=== PATIENT | male | born 1960 ===

== ENCOUNTER 2016-11-22 10:55 | Inpatient (IN) | payer MEDICAID ==
[2016-11-22 11:25] VITALS: BMI 39.1
--- NOTE | 2016-11-22 13:19 | ED PDOC ---
HPI: General Adult Time Seen by Provider: 11/22/16 11:27 Chief Complaint (Nursing): Psychiatric Evaluation History Per: Patient Additional Complaint(s): Pt. states this morning he felt very depressed and had thoughts about hurting himself. States he wanted to take all his pills and "end it all." Reports a hx of depression. He takes Abilify and Xanax. Further reports he feels that he has to support his entire family and is still grieving about his mother who last year. Pt. states he did not attempt to take his pills. Denies HI, hallucinations, chest pain, SOB, palpitations. Past Medical History Reviewed: Historical Data, Nursing Documentation, Vital Signs Vital Signs: Last Vital Signs Temp 98.2 F 11/22/16 11:21 Pulse 56 L 11/22/16 19:12 Resp 16 11/22/16 11:21 BP 124/84 11/22/16 11:21 Pulse Ox 98 11/22/16 19:12 - Medical History PMH: Anxiety, Arthritis, Bipolar Disorder, Depression, Diabetes, Hypercholesterolemia, Schizophrenia Denies: Hepatitis, HIV, HTN, Chronic Kidney Disease, Seizures, Sexually Transmitted Disease - Family History Family History: States: No Known Family Hx - Home Medications Home Medications: Ambulatory Orders Medication Instructions Recorded ALPRAZolam [Xanax] 0.25 mg PO Q4H PRN 11/22/16 ARIPiprazole [Abilify] 10 mg PO HS 11/22/16 Ascorbic Acid [Vitamin C 500 mg 1 tab PO DAILY 11/22/16 Tab] Aspirin [Ecotrin] 81 mg PO DAILY 11/22/16 Ergocalciferol (Vitamin D2) 50,000 unit PO QWK 11/22/16 [Vitamin D2] Fenofibrate Nanocrystallized 160 mg PO DAILY 11/22/16 [Triglide] Glimepiride [amaRYL] 4 mg PO BID 11/22/16 Magnesium Chloride [Magnesium Dr] 1 tab PO DAILY 11/22/16 Pantoprazole Sodium [Protonix] 40 mg PO BID 11/22/16 SITagliptin [Januvia] 100 mg PO DAILY 11/22/16 Sertraline [Zoloft] 50 mg PO HS 11/22/16 Zinc Gluconate [Zinc] 1 tab PO DAILY 11/22/16 - Allergies Allergies/Adverse Reactions: Allergies Allergy/AdvReac Type Severity Reaction Status Date / Time No Known Allergies Allergy Verified 09/01/14 16:15 Review of Systems ROS Statement: Except As Marked, All Systems Reviewed And Found Negative Psych: Positive for: Depression, Suicidal ideation Physical Exam - Reviewed Nursing Documentation Reviewed: Yes Vital Signs Reviewed: Yes - Physical Exam Appears: Positive for: Well, Non-toxic, No Acute Distress Head Exam: Positive for: ATRAUMATIC, NORMAL INSPECTION, NORMOCEPHALIC Skin: Positive for: Normal Color, Warm. Negative for: Rash Eye Exam: Positive for: EOMI, Normal appearance, PERRL ENT: Positive for: Normal ENT Inspection Neck: Positive for: Normal, Painless ROM Cardiovascular/Chest: Positive for: Regular Rate, Rhythm Respiratory: Positive for: CNT, Normal Breath Sounds Gastrointestinal/Abdominal: Positive for: Normal Exam, Bowel Sounds, Soft. Negative for: Tenderness Back: Positive for: Normal Inspection Extremity: Positive for: Normal ROM Neurologic/Psych: Positive for: Alert, Oriented, Mood/Affect (calm, cooperative) . Negative for: Aphasia, Facial Droop - Laboratory Results Result Diagrams: 11/22/16 13:29 11/22/16 13:29 - ECG ECG: Positive for: Interpreted By Me ECG Rhythm: Positive for: Sinus Bradycardia. Negative for: ST/T Changes Rate: 56 O2 Sat by Pulse Oximetry: 98 - Progress ED Course And Treament: Labs ordered. Pt. placed on 1:1. Disposition - Clinical Impression Clinical Impression: Depression - Patient ED Disposition Is Patient to be Admitted: No - Disposition Disposition: Routine/Home Disposition Time: 16:53 Condition: STABLE
[2016-11-22 14:05] LABS: BASO % 0.3 % (0.0-2.0); EOS # 0.2 K/uL (0.0-0.7); EOS % 1.8 % (0.0-4.0); HEMATOCRIT 42.7 % (35.0-51.0); LYMPH # 2.3 K/uL (1.0-4.3); LYMPH % 24.5 % (20.0-40.0); MEAN CELL VOLUME 88.2 fl (80.0-94.0); MEAN CORPUSCULAR HEMOGLOBIN 29.2 pg (27.0-31.0); MEAN CORPUSCULAR HGB CONC 33.1 g/dL (33.0-37.0); MEAN PLATELET VOLUME 8.2 fl (7.2-11.7); MONO # 0.6 K/uL (0.0-0.8); MONO % 6.8 % (0.0-10.0); NEUT # 6.3 K/uL (1.8-7.0); NEUT % 66.6 % (50.0-75.0); RED CELL DISTRIBUTION WIDTH 14.3 % (11.5-14.5); WHITE BLOOD COUNT 9.4 K/uL (4.8-10.8)
[2016-11-22 14:11] LABS: RBC URINE 3 /hpf (0-3); URINE BILIRUBIN NEGATIVE (NEGATIVE); URINE BLOOD NEGATIVE (NEGATIVE); URINE COLOR AMBER (YELLOW); URINE GLUCOSE (UA) NEG (Normal); URINE KETONE NEGATIVE (NEGATIVE); URINE LEUKOCYTE ESTERASE NEG Leu/uL (Negative); URINE PROTEIN NEGATIVE (NEGATIVE); URINE UROBILINOGEN 0.2-1.0 mg/dL (0.2-1.0); WBC URINE 1 /hpf (0-5)
[2016-11-22 14:19] LABS: ALB/GLOB RATIO 1.6 (1.0-2.1); ALCOHOL SERUM < 10 mg/dl (0-10); ALKALINE PHOSPHATASE 58 U/L (38-126); ALT/SGPT 59 U/L (21-72); AST/SGOT 42 U/L (17-59); BILIRUBIN,TOTAL 0.5 mg/dl (0.2-1.3); BLOOD UREA NITROGEN 18 mg/dl (9-20); CALCIUM 9.4 mg/dL (8.4-10.2); CARBON DIOXIDE 26 mmol/L (22-30); CHLORIDE 109 mmol/L (98-107); GFR AFRICAN-AMERICAN > 60; GLUCOSE,RANDOM 57 mg/dL (75-110); POTASSIUM 3.9 MMOL/L (3.6-5.0); SODIUM 145 mmol/l (132-148)
--- NOTE | 2016-11-22 17:46 | RAD ---
HISTORY: clearance COMPARISON: 09/01/2014. FINDINGS: LUNGS: The lungs are well inflated and clear. PLEURA: No significant pleural effusion identified, no pneumothorax apparent. CARDIOVASCULAR: Normal. OSSEOUS STRUCTURES: No significant abnormalities. VISUALIZED UPPER ABDOMEN: Normal. OTHER FINDINGS: None. IMPRESSION: No active pulmonary upper disease.
[2016-11-22 20:14] VITALS: O2SAT 97
[2016-11-22] MEDS ORDERED: Magnesium Hydroxide Susp 30 ml UD PO PRN (21:14)
[2016-11-22] MEDS ORDERED: Alum-Mag Hydrox-Simethicone Susp (30 mL) PO PRN (21:14)
[2016-11-22] MEDS ORDERED: DiphenhydrAMINE 50 mg/ml Inj IM PRN (21:14)
--- NOTE | 2016-11-23 02:44 | PCM.BM ---
Treatment Plan Problems - Problems identified on initial assessmt Altered Sleep Date Initiated: 11/23/16 Time Initiated: :43 Assessment reference: NA Status: Active Hopelessness/Worthlessness Date Initiated: 11/23/16 Time Initiated: :43 Assessment reference: NA Status: Active
--- NOTE | 2016-11-23 02:46 | PCM.BM ---
<Teresita Jefferson - Last Filed: 11/23/16 02:45> Treatment Plan Problems - Problems identified on initial assessmt Altered Sleep Date Initiated: 11/23/16 Time Initiated: 02:43 Assessment reference: NA Status: Active Hopelessness/Worthlessness Date Initiated: 11/23/16 Time Initiated: 02:43 Assessment reference: NA Status: Active Treatment assets and liabiliti Patient Assests: adapts well, motivated, ADL independent, negotiates basic needs Patient Liabilities: relationship conflicts, medical problems - Milieu Protocol Maintain good personal hygiene: daily Remind patient to perform daily oral care , daily Assist patient to perform ADL's, every shift Encourage regular showers Maintain personal safety: every shift Educate patient to report safety concerns to staff, every shift Monitor environment for contraband/sharps Medication safety: Monitor for expected outcome, potential side effects: daily, Assess barriers to learning: daily, Assess readiness for medication education: every shift <Dipika Esteban - Last Filed: 11/26/16 15:37> Treatment assets and liabiliti Patient Assests: adapts well, cooperative, resourceful, self-reliant, ADL independent, good support system, negotiates basic needs, good past tx response Patient Liabilities: relationship conflicts, medical problems Family Contact Family involvement: Family/SO is involved Family contact: Patient agrees to contact, Family has been contacted by patient Family contact name: Dax(brother) ([phone]) Family contacted how many times per week?: 1 Family contact comment: [employer] will place call to patients brother to discuss precursors to hospitalization, collect further collateral and address family concerns. - Outside Agency Agency 1 Care involvment: Other Agency contact name: [facility]- Patient is currently under the care of Dr. Taylor but is requesting referral to [facility]. Agency contact number: [phone] - Goals for Treatment Patient goals for treatment: Patient continues to reports symptoms of depression and anxiety in context of current living situation and discord with brother in-law. Patient withdrawn on 3NP. Patient is currently under the care of Dr. Taylor but is requesting referral to [facility]. Patient will continue stabilization on 3NP through medication management and group/supportive therapy. Patient to be encouraged to attend 3-6 groups/weekly to develop appropriate coping skills, improve insight, promote self-esteem, compliance and safety. Patient to be provided with referral for appropriate level of aftercare. Discharge/Continuing Care - Education Needs Education Needs: Family Medication, Family Diagnosis/Disease Process, Family Coping Skills, Family Community resources, Family Aftercare Safety Plan, Patient Medication, Patient Diagnosis/Disease Process, Patient Coping Skills, Patient Community resources, Patient Aftercare Safety Plan - Discharge Discharge Criteria: Tolerates medication w/o severe side effects, Free of Suicidal thoughts, Normal sleep pattern, Ability to care for self Discharge to:: Home, With Family - Treatment Team Participation Patient/Family/SO Statement: 11/26/16 15:35 Patient reports significant improvement in symptoms of depression and anxiety since admission. Patient presents as brighter but remains withdrawn on 3NP. Patient anticipated for discharge on 11/27. Patient remains agreeable to [facility] referral and expresses being motivated for tx.
--- NOTE | 2016-11-23 08:41 | CARD ---
APPROVED REPORT EKG Measurement Heart [id number] <Conclusion> Sinus bradycardia Incomplete right bundle branch block Left anterior fascicular block Abnormal ECG
[2016-11-23 08:49] LABS: T4 10.3 ug/dl (5.5-11.0)
[2016-11-23 09:02] LABS: THYROID STIMULATING HORMONE 0.27 mIU/ML (0.46-4.68)
[2016-11-23] MEDS: Magnesium Chloride 64 mg ER Tab PO SCH (10:40)
[2016-11-23] MEDS: Pantoprazole 40 mg EC Tab PO SCH ×2 (10:41→18:37)
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
--- NOTE | 2016-11-23 12:48 | CP.PCM.CON ---
<Jennifer Marrero - Last Filed: 11/23/16 14:18> History of Present Illness - History of Present Illness History of Present Illness: 56 y/o M with PMH of HLD, DM2, low TSH, depression and bipolar disorder admitted to psych floor for suicidal ideation. pt reports auditory hallucinations. patient denies any chest pain, abdo pain or SOB. no fever, chills, n/v or urinary symptoms. PMH: HLD, DM2, low TSH, depression and bipolar disorder PSH: none Allg: none SH: denies alcohol and illicit drug use. occasional Cig smoking FH: MOM: DM and Head cancer, at age 84 DAD: DM and stomach cancer, at age 86 VS: reviewed and stable Review of Systems - Constitutional Constitutional: absent: As Per HPI - EENT Eyes: absent: Blurred Vision, Irritation, Other Visual Disturbances Ears: absent: Decreased Hearing, Ear Discharge, Dizziness Nose/Mouth/Throat: absent: Epistaxis, Sinus Pain, Sore Throat - Cardiovascular Cardiovascular: absent: Chest Pain, Edema, Orthopnea, Paroxysmal Nocturnal Dyspnea, Pedal Edema - Respiratory Respiratory: absent: Cough, Dyspnea, Hemoptysis, Wheezing - Gastrointestinal Gastrointestinal: absent: Abdominal Pain - Genitourinary Genitourinary: absent: Change in Urinary Stream - Musculoskeletal Musculoskeletal: absent: Joint Swelling - Integumentary Integumentary: absent: Photosensitivity, Rash - Neurological Neurological: absent: Disequilibrium, Memory Loss, Sensory Deficit, Syncope, Tingling - Psychiatric Psychiatric: Anxiety - Endocrine Endocrine: absent: Polydipsia, Polyphagia, Polyuria Past Patient History - Infectious Disease Hx of Infectious Diseases: None - Tetanus Immunizations Tetanus Immunization: Unknown - Past Medical History & Family History Past Medical History?: Yes - Past Social History Smoking Status: Current Some Days Smoker - CARDIAC Hx Hypercholesterolemia: Yes Hx Hypertension: No - PULMONARY Hx Respiratory Disorders: No Hx Tuberculosis: No - NEUROLOGICAL Hx Neurological Disorder: No Hx Seizures: No - HEENT Hx HEENT Problems: Yes Other/Comment: WEARS GLASSES FOR FARSIGHTEDNESS - RENAL Hx Chronic Kidney Disease: No - ENDOCRINE/METABOLIC Hx Endocrine Disorders: Yes ("pre diabetic") Hx Diabetes Mellitus Type 2: Yes Other/Comment: pt also stating he has thyroid problems unable to specify - HEMATOLOGICAL/ONCOLOGICAL Hx Blood Disorders: No Hx Human Immunodeficiency Virus (HIV): No - INTEGUMENTARY Hx Dermatological Problems: No - MUSCULOSKELETAL/RHEUMATOLOGICAL Hx Arthritis: Yes - GASTROINTESTINAL Hx Gastrointestinal Disorders: No - GENITOURINARY/GYNECOLOGICAL Hx Genitourinary Disorders: No Hx Sexually Transmitted Disorders: No - PSYCHIATRIC Hx Depression: Yes Hx Emotional Abuse: No Hx Physical Abuse: No Hx Schizophrenia: Yes Hx Sexual Abuse: No Hx Substance Use: No - SURGICAL HISTORY Hx Surgeries: No - ANESTHESIA Hx Anesthesia: No Meds Allergies/Adverse Reactions: Allergies Allergy/AdvReac Type Severity Reaction Status Date / Time No Known Allergies Allergy Verified 09/01/14 16:15 - Medications Medications: Current Medications Acetaminophen (Tylenol 325mg Tab) 650 mg PO Q4 PRN PRN Reason: T>101;pain 1-7;headache Al Hydrox/Mg Hydrox/Simethicone (Maalox Plus 30 Ml) 30 ml PO Q4 PRN PRN Reason: Dyspepsia Aripiprazole (Abilify) 10 mg PO HS [facility] Last Admin: 11/22/16 22:00 Dose: 10 mg Ascorbic Acid (Vitamin C 500 Mg Tab) 500 mg PO DAILY [facility] Last Admin: 11/23/16 10:42 Dose: 500 mg Aspirin (Ecotrin) 81 mg PO DAILY [facility] Last Admin: 11/23/16 10:42 Dose: 81 mg Diphenhydramine HCl (Benadryl) 50 mg IM Q6 PRN PRN Reason: Extrapyramidal S/S Unable PO Diphenhydramine HCl (Benadryl) 50 mg PO Q6 PRN PRN Reason: Extrapyramidal Symptoms Diphenhydramine HCl (Benadryl) 50 mg PO HS PRN PRN Reason: Sleep Haloperidol (Haldol) 5 mg PO Q4 PRN PRN Reason: Agitation Haloperidol Lactate (Haldol) 5 mg IM Q4 PRN PRN Reason: Agitation, Unable to Take PO Lorazepam (Ativan) 2 mg IM Q4 PRN PRN Reason: Anxiety/Agitation,Unable PO Lorazepam (Ativan) 2 mg PO Q4 PRN PRN Reason: Anxiety/Agitation Magnesium Chloride (Slow-Mag) 64 mg PO DAILY [facility] Last Admin: 11/23/16 10:40 Dose: 64 mg Magnesium Hydroxide (Milk Of Magnesia) 30 ml PO HS PRN PRN Reason: Constipation Pantoprazole Sodium (Protonix Ec Tab) 40 mg PO BID [facility] Last Admin: 11/23/16 10:41 Dose: 40 mg Sertraline HCl (Zoloft) 50 mg PO HS [facility] Last Admin: 11/22/16 22:04 Dose: 50 mg Sitagliptin Phosphate (Januvia) 100 mg PO DAILY [facility] Last Admin: 11/23/16 10:44 Dose: 100 mg Zinc Sulfate (Zinc Sulfate 220 Mg Cap) 220 mg PO DAILY [facility] Last Admin: 11/23/16 10:42 Dose: 220 mg Physical Exam - Constitutional Appears: No Acute Distress - Head Exam Head Exam: ATRAUMATIC - Eye Exam Eye Exam: EOMI, Normal appearance Pupil Exam: NORMAL ACCOMODATION - ENT Exam ENT Exam: Mucous Membranes Moist - Neck Exam Neck exam: Positive for: Normal Inspection - Respiratory Exam Respiratory Exam: Clear to Auscultation Bilateral, NORMAL BREATHING PATTERN - Cardiovascular Exam Cardiovascular Exam: REGULAR RHYTHM, +S1, +S2 - GI/Abdominal Exam GI & Abdominal Exam: Normal Bowel Sounds, Soft - Extremities Exam Extremities exam: Positive for: normal inspection. Negative for: calf tenderness, pedal edema - Back Exam Back exam: absent: CVA tenderness (L), CVA tenderness (R) - Neurological Exam Neurological exam: Alert, CN II-XII Intact, Oriented x3 - Psychiatric Exam Psychiatric exam: Flat Affect - Skin Skin Exam: Dry, Intact, Normal Color, Warm Results - Vital Signs Recent Vital Signs: Last Vital Signs Temp 98.5 F 11/23/16 09:00 Pulse 61 11/23/16 09:00 Resp 18 11/23/16 09:00 BP 123/70 11/23/16 09:00 Pulse Ox 97 11/22/16 20:12 - Labs Result Diagrams: 11/22/16 13:29 11/22/16 13:29 Labs: Laboratory Results - last 24 hr 11/22/16 11/22/16 11/22/16 13:29 13:29 13:29 WBC 9.4 RBC 4.84 Hgb 14.1 Hct 42.7 MCV 88.2 MCH 29.2 MCHC 33.1 RDW 14.3 Plt Count 272 MPV 8.2 Neut % (Auto) 66.6 Lymph % (Auto) 24.5 Worth % (Auto) 6.8 Eos % (Auto) 1.8 Baso % (Auto) 0.3 Neut # 6.3 Lymph # 2.3 Worth # 0.6 Eos # 0.2 Baso # 0.0 Sodium 145 Potassium 3.9 Chloride 109 H Carbon Dioxide 26 Anion Gap 14 BUN 18 Creatinine 0.8 Est GFR ( Amer) > 60 Est GFR (Non-Af Amer) > 60 POC Glucose (mg/dL) Random Glucose 57 L Calcium 9.4 Total Bilirubin 0.5 AST 42 ALT 59 Alkaline Phosphatase 58 Total Protein 7.0 Albumin 4.3 Globulin 2.7 Albumin/Globulin Ratio 1.6 Triglycerides Cholesterol LDL Cholesterol Direct HDL Cholesterol Thyroxine (T4) Total T3 TSH 3rd Generation Urine Color Urine Clarity Urine pH Ur Specific [place] Urine Protein Urine Glucose (UA) Urine Ketones Urine Blood Urine Nitrate Urine Bilirubin Urine Urobilinogen Ur Leukocyte Esterase Urine RBC (Auto) Urine Microscopic WBC Urine Opiates Screen Negative Urine Methadone Screen Negative Ur Barbiturates Screen Negative Ur Phencyclidine Scrn Negative Ur Amphetamines Screen Negative U Benzodiazepines Scrn Negative U Oth Cocaine Metabols Negative U Cannabinoids Screen Negative Alcohol, Quantitative < 10 11/22/16 11/22/16 11/23/16 13:29 15:08 07:45 WBC RBC Hgb Hct MCV MCH MCHC RDW Plt Count MPV Neut % (Auto) Lymph % (Auto) Worth % (Auto) Eos % (Auto) Baso % (Auto) Neut # Lymph # Worth # Eos # Baso # Sodium Potassium Chloride Carbon Dioxide Anion Gap BUN Creatinine Est GFR ( Amer) Est GFR (Non-Af Amer) POC Glucose (mg/dL) 122 H Random Glucose Calcium Total Bilirubin AST ALT Alkaline Phosphatase Total Protein Albumin Globulin Albumin/Globulin Ratio Triglycerides 162 H D Cholesterol 126 LDL Cholesterol Direct 73 HDL Cholesterol 29 L Thyroxine (T4) 10.3 Total T3 0.981 L TSH 3rd Generation 0.27 L Urine Color Rere Urine Clarity Slighty-cloudy Urine pH 6.0 Ur Specific [place] 1.030 Urine Protein Negative Urine Glucose (UA) Neg Urine Ketones Negative Urine Blood Negative Urine Nitrate Negative Urine Bilirubin Negative Urine Urobilinogen 0.2-1.0 Ur Leukocyte Esterase Neg Urine RBC (Auto) 3 Urine Microscopic WBC 1 Urine Opiates Screen Urine Methadone Screen Ur Barbiturates Screen Ur Phencyclidine Scrn Ur Amphetamines Screen U Benzodiazepines Scrn U Oth Cocaine Metabols U Cannabinoids Screen Alcohol, Quantitative Assessment & Plan - Assessment and Plan (Free Text) Assessment: A/P: 56 y/o M with PMH of HLD, DM2, low TSH, depression and bipolar disorder admitted to psych floor for suicidal ideation. Denies any medical issues. DM - continue Januvia 100mg PO daily - Accucheck - monitor BG - Diabetic diet HLD - TG 162H, Chol 126, LDL 73, HDL 29 - continue lifestyle modification and diet control - Encourage Exercise Low TSH - Asymptomatic - TSH: 0.27, T4: 10.3 Obesity - BMI 39.1 - lifestyle modification and diet control Depression - Continue management as per psych Bipolar disorder - Continue management as per psych STD screening - Patient requested - 1 sexual partner in last 1yr, no protection as per pt Case discussed with Dr. Serrano <Ricardo Serrano - Last Filed: 11/23/16 14:45> Meds - Medications Medications: Current Medications Acetaminophen (Tylenol 325mg Tab) 650 mg PO Q4 PRN PRN Reason: T>101;pain 1-7;headache Al Hydrox/Mg Hydrox/Simethicone (Maalox Plus 30 Ml) 30 ml PO Q4 PRN PRN Reason: Dyspepsia Aripiprazole (Abilify) 10 mg PO HS [facility] Last Admin: 11/22/16 22:00 Dose: 10 mg Ascorbic Acid (Vitamin C 500 Mg Tab) 500 mg PO DAILY [facility] Last Admin: 11/23/16 10:42 Dose: 500 mg Aspirin (Ecotrin) 81 mg PO DAILY [facility] Last Admin: 11/23/16 10:42 Dose: 81 mg Diphenhydramine HCl (Benadryl) 50 mg IM Q6 PRN PRN Reason: Extrapyramidal S/S Unable PO Diphenhydramine HCl (Benadryl) 50 mg PO Q6 PRN PRN Reason: Extrapyramidal Symptoms Diphenhydramine HCl (Benadryl) 50 mg PO HS PRN PRN Reason: Sleep Haloperidol (Haldol) 5 mg PO Q4 PRN PRN Reason: Agitation Haloperidol Lactate (Haldol) 5 mg IM Q4 PRN PRN Reason: Agitation, Unable to Take PO Lorazepam (Ativan) 2 mg IM Q4 PRN PRN Reason: Anxiety/Agitation,Unable PO Lorazepam (Ativan) 2 mg PO Q4 PRN PRN Reason: Anxiety/Agitation Magnesium Chloride (Slow-Mag) 64 mg PO DAILY [facility] Last Admin: 11/23/16 10:40 Dose: 64 mg Magnesium Hydroxide (Milk Of Magnesia) 30 ml PO HS PRN PRN Reason: Constipation Pantoprazole Sodium (Protonix Ec Tab) 40 mg PO BID [facility] Last Admin: 11/23/16 10:41 Dose: 40 mg Sertraline HCl (Zoloft) 50 mg PO HS [facility] Last Admin: 11/22/16 22:04 Dose: 50 mg Sitagliptin Phosphate (Januvia) 100 mg PO DAILY [facility] Last Admin: 11/23/16 10:44 Dose: 100 mg Zinc Sulfate (Zinc Sulfate 220 Mg Cap) 220 mg PO DAILY [facility] Last Admin: 11/23/16 10:42 Dose: 220 mg Results - Vital Signs Recent Vital Signs: Last Vital Signs Temp 98.5 F 11/23/16 09:00 Pulse 61 11/23/16 09:00 Resp 18 11/23/16 09:00 BP 123/70 11/23/16 09:00 Pulse Ox 97 11/22/16 20:12 - Labs Result Diagrams: 11/22/16 13:29 11/22/16 13:29 Labs: Laboratory Results - last 24 hr 11/22/16 11/23/16 11/23/16 15:08 07:45 07:45 POC Glucose (mg/dL) 122 H Hemoglobin A1c 6.4 Triglycerides 162 H D Cholesterol 126 LDL Cholesterol Direct 73 HDL Cholesterol 29 L Thyroxine (T4) 10.3 Total T3 0.981 L TSH 3rd Generation 0.27 L Assessment & Plan - Assessment and Plan (Free Text) Plan: I was present with the resident during the history and exam. I discussed the case with the resident and agree with the findings and plan as documented in the residents note.
[2016-11-23 17:55] LABS: RAPID PLASMA REAGIN REACTIVE (NONREACTIVE)
[2016-11-24] MEDS: Pantoprazole 40 mg EC Tab PO SCH ×2 (09:40→18:15)
[2016-11-24] MEDS: Magnesium Chloride 64 mg ER Tab PO SCH (09:40)
--- NOTE | 2016-11-24 10:46 | PCM.PYCHPN ---
Psychiatric Progress Note - Psychiatric Progress Note Patient seen today, length of contact: pt seen and evaluated Patient Chief Complaint: pt mumbles to himself and remains internally preoccupied and remains withdrwan and paranoid on unit. 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
[2016-11-25] MEDS: Magnesium Chloride 64 mg ER Tab PO SCH (08:30)
[2016-11-25] MEDS: Pantoprazole 40 mg EC Tab PO SCH ×2 (09:29→17:10)
[2016-11-25 16:50] VITALS: RESP 18
--- NOTE | 2016-11-25 19:03 | PCM.PYCHPN ---
Psychiatric Progress Note - Psychiatric Progress Note Patient seen today, length of contact: pt seen and evaluated Patient Chief Complaint: pt mumbles to himself and remains internally preoccupied and remains withdrwan and paranoid on unit. Medication Change: No Medical Record Reviewed: Yes Mental Status Examination - Cognitive Function Orientation: Person, Place, Situation Attention: Poor Concentration: Poor Association: WNL - Mood Mood: Depressed, Anxious - Affect Affect: Constricted - Formal Thought Process Formal Thought Process: Hallucinations, Paranoia - Homicidal Ideation Homicidal Ideation: No Goal/Treatment Plan - Goal/Treatment Plan Progress Toward Problem(s) and Goals/Treatment Plan: anel continue the current regimen of zoloft and abilify and titrate to stabilize the pt anel engage pt in therapy and groups.
[2016-11-26] MEDS: Magnesium Chloride 64 mg ER Tab PO SCH (09:22)
[2016-11-26] MEDS: Pantoprazole 40 mg EC Tab PO SCH ×2 (09:23→17:34)
--- NOTE | 2016-11-26 11:52 | PCM.PYCHPN ---
Psychiatric Progress Note - Psychiatric Progress Note Patient seen today, length of contact: in treatment team Patient Chief Complaint: i feel better Problems Identified/Issues Discussed: pt states he is feeling much better now that he took his medications for a few days. feels being in the hospital has helped him get away from his family stress. he is denying any thoughts to hurt himself of others. his thoughts are more clear and he states his mood is no longer depressed. he denies medication side effects. Medication Change: No Medical Record Reviewed: Yes Mental Status Examination - Cognitive Function Orientation: Person, Place, Situation Memory: Intact Attention: WNL Concentration: WNL Association: [facility] Fund of Knowledge: [facility] Decription of patient's judgement and insights: fair - Mood Mood: Neutral - Affect Affect: Broad - Speech Speech: Appropriate - Formal Thought Process Formal Thought Process: No Impairment Psychotic Thoughts and Behaviors: denies any a/v hallucinations - Suicidal Ideation Suicidal Ideation: No Plan: pt denies any si/hi - Homicidal Ideation Homicidal Ideation: No Goal/Treatment Plan - Goal/Treatment Plan Need for Continued Stay: Remain at risks for inpatient hospitalization, Severe functional impairment Progress Toward Problem(s) and Goals/Treatment Plan: schizoaffective disorder tolerating medications and symptoms improved pt could benefit from a php program to monitor symptoms and provide structure and support plan to discharge tomorrow. Estimated Date of D/C: 11/27/16
[2016-11-27] MEDS: Magnesium Chloride 64 mg ER Tab PO SCH (08:50)
[2016-11-27] MEDS: Pantoprazole 40 mg EC Tab PO SCH (08:50)
[2016-11-27 09:06] VITALS: BP 124/68; PULSE 85; TEMP 96.5
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
== END 2016-11-27 11:14 | disposition home or self-care (01) | DRG 430 ==
LOC: H.ER 10:55 → H.EROBSV 12:20 → OBSVTOIN 16:53 → H.ERHOLD 17:11 → H.PSYCH 20:23
PROVIDERS: ADMIT Psychiatry & Neurology Psychiatry; ATTEND Psychiatry & Neurology Psychiatry
PROC: GZHZZZZ Group Psychotherapy (ICD-10-PCS; principal; 2016-11-26)
PROC: GZ51ZZZ Individual Psychotherapy, Behavioral (ICD-10-PCS; 2016-11-26)
DX: F32.3 Major depressive disorder, single episode, severe with psychotic features (principal); E11.9 Type 2 diabetes mellitus without complications; R45.851 Suicidal ideations; E66.9 Obesity, unspecified; E78.00 Pure hypercholesterolemia, unspecified; E78.5 Hyperlipidemia, unspecified; F31.9 Bipolar disorder, unspecified; Z91.14 Patient's other noncompliance with medication regimen; Z68.39 Body mass index [BMI] 39.0-39.9, adult; Z79.82 Long term (current) use of aspirin; Z79.899 Other long term (current) drug therapy; F17.210 Nicotine dependence, cigarettes, uncomplicated; F41.9 Anxiety disorder, unspecified; M19.90 Unspecified osteoarthritis, unspecified site; R73.03 Prediabetes; Z79.84 Long term (current) use of oral hypoglycemic drugs

== ENCOUNTER 2017-10-11 18:36 | Emergency (ER) | payer MEDICAID ==
[2017-10-11 18:36] VITALS: BMI 39.1
[2017-10-11 19:10] VITALS: BP 124/50; PULSE 62; RESP 18; TEMP 98.1; O2SAT 98
--- NOTE | 2017-10-11 20:50 | ED PDOC ---
HPI: Skin/Bite Injury Time Seen by Provider: 10/11/17 19:14 Chief Complaint (Nursing): Abnormal Skin Integrity Chief Complaint (Provider): Abnormal Skin Integrity History Per: Patient History/Exam Limitations: no limitations Onset/Duration Of Symptoms: Days (x1 week) Additional Complaint(s): Dmitriy Acosta is a 57 y/o male who presents to the ED complaining of bilateral itching to the legs for the past x1 week. Patient states he thought it was bug bites but noticed one lesion on his right leg that wouldn't heal and seems to be getting bigger. Patient denies applying any cream and he also denies fever, chills, or pruritic discharge. PMD: Dr. Blanchard Past Medical History Reviewed: Historical Data, Nursing Documentation, Vital Signs Vital Signs: Last Vital Signs Temp 98.1 F 10/11/17 19:07 Pulse 62 10/11/17 19:07 Resp 18 10/11/17 19:07 BP 124/50 L 10/11/17 19:07 Pulse Ox 98 10/11/17 19:07 - Medical History PMH: Anxiety, Arthritis, Bipolar Disorder, Depression, Diabetes, Hypercholesterolemia, Schizophrenia Denies: Hepatitis, HIV, HTN, Chronic Kidney Disease, Seizures, Sexually Transmitted Disease - Family History Family History: States: Hypertension - Social History Current smoker - smoking cessation education provided: Yes Alcohol: None Drugs: Denies - Home Medications Home Medications: Ambulatory Orders Medication Instructions Recorded Fenofibrate Nanocrystallized 160 mg PO DAILY 11/22/16 [Triglide] Glimepiride [amaRYL] 4 mg PO BID 11/22/16 Magnesium Chloride [Magnesium Dr] 1 tab PO DAILY 11/22/16 ARIPiprazole [Abilify] 10 mg PO HS #30 tab 11/27/16 Ascorbic Acid [Vitamin C 500 mg 500 mg PO DAILY tab 11/27/16 Tab] Aspirin [Ecotrin] 81 mg PO DAILY tabec 11/27/16 Calcium/Chloride/Magnesium 64 mg PO DAILY ect 11/27/16 [Slow-Mag] Pantoprazole [Protonix EC Tab] 40 mg PO BID #60 ect 11/27/16 SITagliptin [Januvia] 100 mg PO DAILY #30 tab 11/27/16 Sertraline [Zoloft] 50 mg PO HS #30 tab 11/27/16 Zinc [Zinc Sulfate 220 mg Cap] 220 mg PO DAILY cap 11/27/16 Amoxicillin/Clavulanate [Augmentin 1 tab PO BID #14 tab 10/11/17 875 MG-125 MG] Mupirocin 2% Ointment [Bactroban 1 appl TP BID #1 tube 10/11/17 Ointment] - Allergies Allergies/Adverse Reactions: Allergies Allergy/AdvReac Type Severity Reaction Status Date / Time No Known Allergies Allergy Verified 09/01/14 16:15 Review of Systems ROS Statement: Except As Marked, All Systems Reviewed And Found Negative (as per HPI otherwise negative) Constitutional: Negative for: Fever, Chills Skin: Positive for: Lesions. Negative for: Other (discharge from lesions) Physical Exam - Reviewed Nursing Documentation Reviewed: Yes Vital Signs Reviewed: Yes - Physical Exam Appears: Positive for: Well, No Acute Distress Head Exam: Positive for: ATRAUMATIC, NORMOCEPHALIC Extremity: Positive for: Other (red papular lesions to anterior tibia bilaterally as well as few on his upper extremities consistent with insect bite ; 1 cm circular ulcerated nontender lesion with subtle surrounding erythema to right anterior tibia) - ECG O2 Sat by Pulse Oximetry: 98 (RA) Pulse Ox Interpretation: Normal Medical Decision Making Medical Decision Making: Time: 20:00 Impression: Infected insect bite Initial Plan: --Patient will be discharged with antibiotics --Instructed to have mandatory follow up with PMD as well as for wound care Time: 20:06 Upon provider reevaluation patient is feeling better, is medically stable, and requires no further treatment in the ED at this time. Patient will be discharged home with Rx for antibiotics. Counseling was provided and all questions were answered regarding diagnosis and need for follow up with PMD as well as flow specialist. There is agreement to discharge plan. Return if symptoms persist or worsen. Scribe Attestation: Documented by Sukh Poole, acting as a scribe for Aimee Abel MD. Provider Scribe Attestation: All medical record entries made by the Scribe were at my direction and personally dictated by me. I have reviewed the chart and agree that the record accurately reflects my personal performance of the history, physical exam, medical decision making, and the department course for this patient. I have also personally directed, reviewed, and agree with the discharge instructions and disposition. Disposition - Clinical Impression Clinical Impression: Insect bite of leg, infected - Patient ED Disposition Is Patient to be Admitted: No - Disposition Referrals: Pepito Gates MD [Medical Doctor] - (SEE DR GATES IN 2-3 DAYS FOR WOUND CHECK RETURN TO ER FOR WOUND CHECK IF YOU ARE NOT ABLE TO SEE YOUR DOCTOR) Disposition: Routine/Home Disposition Time: 20:06 Condition: STABLE Additional Instructions: DMITRIY ACOSTA, thank you for letting us take care of you today. Your provider was Aimee Abel MD and you were treated for POSS INFECTION ON RIGHT LEG. The emergency medical care you received today was directed at your acute symptoms. If you were prescribed any medication, please fill it and take as directed. It may take several days for your symptoms to resolve. Return to the Emergency Department if your symptoms worsen, do not improve, or if you have any other problems. Please contact your doctor or call one of the physicians/clinics you have been referred to that are listed on the Patient Visit Information form that is included in your discharge packet. Bring any paperwork you were given at discharge with you along with any medications you are taking to your follow up visit. Our treatment cannot replace ongoing medical care by a primary care provider outside of the emergency department. Thank you for allowing the [facility] team to be part of your care today. Prescriptions: Amoxicillin/Clavulanate [Augmentin 875 MG-125 MG] 1 tab PO BID #14 tab Mupirocin 2% Ointment [Bactroban Ointment] 1 appl TP BID #1 tube Instructions: Insect Bites and Stings, Wound Infection
== END 2017-10-11 20:38 | disposition home or self-care (01) ==
LOC: H.ER 18:36
DX: L08.9 Local infection of the skin and subcutaneous tissue, unspecified (principal); E11.9 Type 2 diabetes mellitus without complications; Z79.84 Long term (current) use of oral hypoglycemic drugs

== ENCOUNTER 2017-12-01 19:51 | Emergency (ER) | payer MEDICAID ==
[2017-12-01 19:52] VITALS: BMI 39.1
[2017-12-01 20:02] VITALS: BP 121/68; PULSE 67; RESP 21; TEMP 98.7; O2SAT 97
--- NOTE | 2017-12-01 20:37 | ED PDOC ---
History of Present Illness History of Present Illness: 57 year old male presents to the ED with complaints of diffuse myalgias, sore throat, cough, and congestion for 2 days. Otherwise he denies any fever, chills, vomiting, diarrhea, SOB, chest pain, dizziness, or other associated symptoms. Patient did not take any medication for symptom relief prior to arrival. PMD: Pepito Bhandari HPI: Influenza Time Seen by Provider: 12/01/17 20:17 Chief Complaint: Flu-like Symptoms Chief Complaint (Provider): Flu-like Symptoms History Per: Patient Exam Limitations: no limitations Onset/Duration Of Symptoms: Days (x2) Symptoms include: bodyaches, sore throat, cough, nasal congestion Past Medical History Reviewed: Historical Data, Nursing Documentation, Vital Signs Vital Signs: Last Vital Signs Temp 98.7 F 12/01/17 19:57 Pulse 67 12/01/17 19:57 Resp 21 12/01/17 19:57 BP 121/68 12/01/17 19:57 Pulse Ox 97 12/01/17 19:57 - Medical History PMH: Anxiety, Arthritis, Bipolar Disorder, Depression, Diabetes, Hypercholesterolemia, Schizophrenia Denies: Hepatitis, HIV, HTN, Chronic Kidney Disease, Seizures, Sexually Transmitted Disease - Family History Family History: States: Hypertension - Home Medications Home Medications: Ambulatory Orders Medication Instructions Recorded Fenofibrate Nanocrystallized 160 mg PO DAILY 11/22/16 [Triglide] Glimepiride [amaRYL] 4 mg PO BID 11/22/16 Magnesium Chloride [Magnesium Dr] 1 tab PO DAILY 11/22/16 ARIPiprazole [Abilify] 10 mg PO HS #30 tab 11/27/16 Ascorbic Acid [Vitamin C 500 mg 500 mg PO DAILY tab 11/27/16 Tab] Aspirin [Ecotrin] 81 mg PO DAILY tabec 11/27/16 Calcium/Chloride/Magnesium 64 mg PO DAILY ect 11/27/16 [Slow-Mag] Pantoprazole [Protonix EC Tab] 40 mg PO BID #60 ect 11/27/16 SITagliptin [Januvia] 100 mg PO DAILY #30 tab 11/27/16 Sertraline [Zoloft] 50 mg PO HS #30 tab 11/27/16 Zinc [Zinc Sulfate 220 mg Cap] 220 mg PO DAILY cap 11/27/16 Amoxicillin/Clavulanate [Augmentin 1 tab PO BID #14 tab 10/11/17 875 MG-125 MG] Mupirocin 2% Ointment [Bactroban 1 appl TP BID #1 tube 10/11/17 Ointment] Azithromycin [Zithromax] 250 mg PO DAILY #6 tab 12/01/17 Naproxen [Naprosyn] 500 mg PO Q12H #20 tab 12/01/17 - Allergies Allergies/Adverse Reactions: Allergies Allergy/AdvReac Type Severity Reaction Status Date / Time No Known Allergies Allergy Verified 12/01/17 20:01 Review of Systems ROS Statement: Except As Marked, All Systems Reviewed And Found Negative Constitutional: Positive for: Other (generalized bodyaches). Negative for: Fever, Chills, Sweats Eyes: Negative for: Vision Change ENT: Positive for: Nose Congestion, Throat Pain Cardiovascular: Negative for: Chest Pain Respiratory: Positive for: Cough. Negative for: Shortness of Breath Gastrointestinal: Negative for: Nausea, Vomiting, Abdominal Pain, Diarrhea Neurological: Negative for: Weakness, Headache, Dizziness Physical Exam - Reviewed Nursing Documentation Reviewed: Yes Vital Signs Reviewed: Yes - Physical Exam Appears: Positive for: Non-toxic, No Acute Distress Head Exam: Positive for: ATRAUMATIC, NORMOCEPHALIC Skin: Positive for: Normal Color, Warm, Dry Eye Exam: Positive for: Normal appearance ENT: Positive for: Pharyngeal Erythema. Negative for: Tonsillar Exudate Neck: Positive for: Normal, Painless ROM Cardiovascular/Chest: Positive for: Regular Rate, Rhythm. Negative for: Murmur Respiratory: Positive for: Rhonchi (scattered). Negative for: Wheezing, Respiratory Distress Pulses-Radial (L): 2+ Pulses-Radial (R): 2+ Gastrointestinal/Abdominal: Positive for: Normal Exam, Soft. Negative for: Tenderness Extremity: Negative for: Calf Tenderness, Swelling Neurologic/Psych: Positive for: Alert, Oriented (x3) Medical Decision Making Medical Decision Making: Time: 20:31 Initial Impression: 57 y/o male with cough, congestion, sore throat, and bodyaches Initial Plan: Chest x-ray ordered to rule out pneumonia. --- Scribe Attestation: Documented by Wendy Brooks, acting as a scribe for Dr. Amandeep Lozada MD. Provider Scribe Attestation: All medical record entries made by the Scribe were at my direction and personally dictated by me. I have reviewed the chart and agree that the record accurately reflects my personal performance of the history, physical exam, medical decision making, and the department course for this patient. I have also personally directed, reviewed, and agree with the discharge instructions and disposition. - ECG O2 Sat by Pulse Oximetry: 97 Pulse Ox Interpretation: Normal Disposition - Clinical Impression Clinical Impression: Bronchitis, Upper respiratory infection - Patient ED Disposition Is Patient to be Admitted: No Counseled Patient/Family Regarding: Studies Performed, Diagnosis, Need For Followup, Rx Given - Disposition [facility]errals: [facility] [Outside] Disposition: Routine/Home Disposition Time: 21:54 Condition: FAIR Prescriptions: Azithromycin [Zithromax] 250 mg PO DAILY #6 tab Naproxen [Naprosyn] 500 mg PO Q12H #20 tab Instructions: Acute Bronchitis, Bacterial Upper Respiratory Infection, Adult Forms: [employer] (Bulgarian)
--- NOTE | 2017-12-02 09:46 | RAD ---
Date of service: 12/01/2017 HISTORY: cough COMPARISON: Frontal chest radiograph 11/22/2016. TECHNIQUE: Chest PA and lateral FINDINGS: LUNGS: No active pulmonary disease. PLEURA: No significant pleural effusion identified. No pneumothorax apparent. CARDIOVASCULAR: Normal. OSSEOUS STRUCTURES: No significant abnormalities. VISUALIZED UPPER ABDOMEN: Normal. OTHER FINDINGS: None. IMPRESSION: No interval acute cardiopulmonary disease appreciated.
== END 2017-12-01 22:12 | disposition home or self-care (01) ==
LOC: H.ER 19:51
DX: J40 Bronchitis, not specified as acute or chronic (principal); J06.9 Acute upper respiratory infection, unspecified

== ENCOUNTER 2018-02-04 13:00 | Inpatient (IN) | payer MEDICAID ==
[2018-02-04 13:01] VITALS: BMI 39.1
--- NOTE | 2018-02-04 13:43 | ED PDOC ---
HPI: Psych/Substance Abuse Time Seen by Provider: 02/04/18 13:09 Chief Complaint (Nursing): Psychiatric Evaluation Chief Complaint (Provider): Psychiatric Evaluation History Per: Patient History/Exam Limitations: no limitations Onset/Duration Of Symptoms: Days (x1 week) Additional Complaint(s): Destin Acosta is a 57 year old male with a past medical history of depression, diabetes, arthritis, hypercholesterolemia, anxiety, and bipolar disorder, who presents to the emergency department stating that he has been feeling more and more depressed. Patient reports that he does not feel like living anymore. H states he went to the police station because he felt suicidal but did not have any direct plan. He has been admitted in the past for depression and currently takes Abilify and Lexapro daily but has not taken them today. PMD: Pepito Blanchard Past Medical History Reviewed: Historical Data, Nursing Documentation, Vital Signs Vital Signs: Last Vital Signs Temp 98.4 F 02/04/18 13:02 Pulse 59 L 02/04/18 13:02 Resp 20 02/04/18 13:02 BP 148/84 02/04/18 13:02 Pulse Ox 97 02/04/18 13:02 - Medical History PMH: Anxiety, Arthritis, Bipolar Disorder, Depression, Diabetes, Hypercholesterolemia, Schizophrenia Denies: Hepatitis, HIV, HTN, Chronic Kidney Disease, Seizures, Sexually Transmitted Disease - Surgical History Surgical History: No Surg Hx - Family History Family History: States: Hypertension - Home Medications Home Medications: Ambulatory Orders Medication Instructions Recorded RX: Fenofibrate Nanocrystallized 160 mg PO DAILY 11/22/16 [Triglide] RX: Glimepiride [amaRYL] 4 mg PO BID 11/22/16 RX: Aspirin [Ecotrin] 81 mg PO DAILY tabec 11/27/16 RX: Pantoprazole [Protonix EC Tab] 40 mg PO BID #60 ect 11/27/16 RX: SITagliptin [Januvia] 100 mg PO DAILY #30 tab 11/27/16 RX: Sertraline [Zoloft] 50 mg PO HS #30 tab 11/27/16 Mupirocin 2% Ointment [Bactroban 1 appl TP BID #1 tube 10/11/17 Ointment] RX: ALPRAZolam [Xanax] 0.25 mg PO TID PRN 02/04/18 RX: ARIPiprazole [Abilify] 15 mg PO HS 02/04/18 RX: Ramipril [Altace] 2.5 mg PO DAILY 02/04/18 - Allergies Allergies/Adverse Reactions: Allergies Allergy/AdvReac Type Severity Reaction Status Date / Time No Known Allergies Allergy Verified 02/04/18 13:06 Review of Systems ROS Statement: Except As Marked, All Systems Reviewed And Found Negative Psych: Positive for: Depression, Suicidal ideation Physical Exam - Reviewed Nursing Documentation Reviewed: Yes Vital Signs Reviewed: Yes - Physical Exam Appears: Positive for: Non-toxic, No Acute Distress Head Exam: Positive for: ATRAUMATIC, NORMOCEPHALIC Skin: Positive for: Normal Color Cardiovascular/Chest: Positive for: Bradycardia Respiratory: Positive for: Normal Breath Sounds. Negative for: Respiratory Distress Neurologic/Psych: Positive for: Alert, Oriented - Laboratory Results Result Diagrams: 02/04/18 14:19 02/04/18 14:19 - ECG ECG Rhythm: Positive for: Sinus Bradycardia Interpretation Of ECG: No acute ischemic changes QTc 405 ms O2 Sat by Pulse Oximetry: 97 (RA) Pulse Ox Interpretation: Normal Medical Decision Making Medical Decision Making: Time: 13:46 Plan: --EKG --Alcohol Serum --CMP --Urine drug screen --CBC with differential --Urinalysis Pt. was evaluated by crisis counselor, d/w Dr. Tucker, arrangements made for admission. Pt. comfortable with plan. -------- --------- Scribe Attestation: Documented by Tushar Nur, acting as a scribe for Nighat Mcghee PA-C. Provider Scribe Attestation: All medical record entries made by the Scribe were at my direction and personall y dictated by me. I have reviewed the chart and agree that the record accurately reflects my personal performance of the history, physical exam, medical decision making, and the department course for this patient. I have also personally directed, reviewed, and agree with the discharge instructions and disposition. Disposition - Clinical Impression Clinical Impression: Psychiatric disorder - Patient ED Disposition Is Patient to be Admitted: Yes Doctor Will See Patient In The: Hospital - Disposition Disposition Time: 19:52 Condition: STABLE
[2018-02-04 14:28] LABS: BASO % 0.2 % (0.0-2.0); EOS # 0.2 K/uL (0.0-0.7); EOS % 2.7 % (0.0-4.0); HEMOGLOBIN 13.7 g/dL (12.0-18.0); LYMPH # 2.1 K/uL (1.0-4.3); LYMPH % 31.7 % (20.0-40.0); MEAN CELL VOLUME 88.6 fl (80.0-94.0); MEAN CORPUSCULAR HEMOGLOBIN 29.9 pg (27.0-31.0); MEAN CORPUSCULAR HGB CONC 33.7 g/dL (33.0-37.0); MEAN PLATELET VOLUME 7.7 fl (7.2-11.7); MONO # 0.5 K/uL (0.0-0.8); MONO % 7.8 % (0.0-10.0); NEUT # 3.7 K/uL (1.8-7.0); NEUT % 57.6 % (50.0-75.0); NRBC % 0.2 % (0.0-0.0); RBC 4.57 Mil/uL (4.40-5.90); RED CELL DISTRIBUTION WIDTH 14.1 % (11.5-14.5); WHITE BLOOD COUNT 6.5 K/uL (4.8-10.8)
[2018-02-04 14:36] LABS: URINE COLOR STRAW (YELLOW)
[2018-02-04 14:37] LABS: URINE BILIRUBIN NEGATIVE (NEGATIVE); URINE CLARITY CLEAR (Clear); URINE GLUCOSE (UA) NEGATIVE (Normal)
[2018-02-04 14:38] LABS: URINE BLOOD NEGATIVE (NEGATIVE); URINE LEUKOCYTE ESTERASE NEGATIVE Leu/uL (Negative); URINE PROTEIN NEGATIVE (NEGATIVE); URINE UROBILINOGEN 0.2-1.0 mg/dL (0.2-1.0)
[2018-02-04 14:53] LABS: ALB/GLOB RATIO 1.4 (1.0-2.1); ALT/SGPT 39 U/L (21-72); AST/SGOT 29 U/L (17-59); BARBITURATES, UR NEGATIVE (NEGATIVE); BENZODIAZEPINES, UR NEGATIVE (NEGATIVE); BLOOD UREA NITROGEN 13 mg/dl (9-20); GFR NON-AFRICAN AMERICAN > 60; OPIATES, UR NEGATIVE (NEGATIVE); PHENCYCLIDINE, UR NEGATIVE (NEGATIVE)
[2018-02-04 20:51] VITALS: O2SAT 97
[2018-02-04] MEDS ORDERED: Alum-Mag Hydrox-Simethicone Susp (30 mL) PO PRN (22:10)
[2018-02-04] MEDS ORDERED: DiphenhydrAMINE 50 mg/ml Inj IM PRN (22:10)
[2018-02-04] MEDS ORDERED: Magnesium Hydroxide Susp 30 ml UD PO PRN (22:10)
--- NOTE | 2018-02-04 22:28 | PCM.BM ---
<Ketan Poe - Last Filed: 02/04/18 22:25> Treatment Plan Problems - Problems identified on initial assessmt Hopelessness/Helplessness Date Initiated: 02/04/18 Time Initiated: 22:25 Assessment reference: NA Status: Active Priority: 1 Feelings of Worthlessness Date Initiated: 02/04/18 Time Initiated: 22:26 Assessment reference: NA Status: Active Priority: 2 Altered Sleep Patterns Date Initiated: 02/04/18 Time Initiated: 22:26 Assessment reference: NA Status: Active Priority: 3 Treatment assets and liabiliti Patient Assests: adapts well, cooperative, resourceful, self-reliant, ADL independent, good support system, negotiates basic needs, good past tx response Patient Liabilities: financial problems, poor support system - Milieu Protocol Maintain good personal hygiene: daily Encourage regular showers, daily Remind patient to perform daily oral care, daily Assist patient to perform ADL's Conduct patient checks and document Observation sheet: Q15 minutes Maintain personal safety: every shift Educate patient to report safety concerns to staff, every shift Monitor environment for contraband/sharps Medication safety: Monitor for expected outcome, potential side effects: every shift, Assess barriers to learning: every shift, Assess readiness for medication education: every shift <Kelsey Tucker - Last Filed: 02/05/18 08:49> - Diagnosis (1) Schizoaffective disorder Status: Acute Interventions: Medication management, Individual and group therapy, Psychoeducation 02/05/18 08:49 <Cortes Nieves - Last Filed: 02/05/18 12:59> Family Contact Family involvement: Family/SO is involved Family contact: Patient declines to allow family contact at present Family contact name: Pt refused. - Goals for Treatment Patient goals for treatment: Pt unable to identify goals at this time as he is floridly psychotic with internal preoccupation, thought blocking and paranoia. Discharge/Continuing Care - Education Needs Education Needs: Patient Medication, Patient Diagnosis/Disease Process, Patient Coping Skills, Patient Community resources, Patient Activities of Daily Living, Patient Aftercare Safety Plan - Discharge Discharge Criteria: Tolerates medication w/o severe side effects, Free of Suicidal thoughts, Free of paranoid thoughts, Free of agitation, Ability to care for self, Reduction of target symptoms Discharge to:: Home, With Family - Treatment Team Participation Patient/Family/SO Statement: 12/05/18 12:56 Pt seen in treatment team on 02/05/18. Pt presented as bizarre and unkempt with internal preoccupation, thought blocking and paranoia. Pt burst into tears without provocation or precipitating event and was unable to explain this emotional outburst to staff. Pt unable to give any current stressors and was unable to provide if his paranoia was real or a delusion. Discussed with Family/SO: No Was Patient/Family/SO present at Treatment Team Meeting: Yes
[2018-02-05 06:45] LABS: T4 7.72 ug/dl (5.5-11.0)
--- NOTE | 2018-02-05 06:57 | CARD ---
APPROVED REPORT Date of service: 02/04/2018 EKG Measurement Heart [id number] <Conclusion> Sinus bradycardia Left anterior fascicular block Abnormal ECG
--- NOTE | 2018-02-05 08:51 | PCM.PSYCH ---
Initial Psychiatric Evaluation - Initial Psychiatric Evaluation Type of Admission: Voluntary Legal Status: Capacity Chief Complaint (in patient's own words): "I wanted to kill myself." Patient's Reaction to Hospitalization: HPI: 57 yo male w/ h/o schizoaffective disorder, presents w/ suicidal ideation, acute paranoia that he is being followed by some unknown men, auditory hallucinations (patient can not specify what they are saying). Patient reports that 3 weeks ago he wanted to overdose on pills, but he did not do it. He reports feeling depressed, w/ poor energy/concentration. PPH: H/o Schizoaffective disorder vs Bipolar disorder; currently in outpatient treatment on Abilify 10 mg PO Daily, Zoloft 50 mg PO Daily; h/o prior hospitalizations PMH: HLD, DMII, HTN, GERD, h/o treatment for syphilis ALL: [facility]DA SH: Denies drugs/ etoh use; 3 cigs/ day; declined smoked cessation; lives w/ brother FH: MOM: DM and Head cancer, at age 84 DAD: DM and stomach cancer, at age 86 Current Medications: Active Medications Generic Name Dose Route Start Last Admin Trade Name Freq PRN Reason Stop Dose Admin Acetaminophen 650 mg 02/04/18 22:10 Tylenol 325mg Tab PO Q4 PRN Pain, moderate (4-7) Al Hydrox/Mg Hydrox/Simethicone 30 ml 02/04/18 22:10 Maalox Plus 30 Ml PO Q4 PRN Dyspepsia Aspirin 81 mg 02/05/18 09:00 Ecotrin PO DAILY ARMIN Diphenhydramine HCl 50 mg 02/04/18 22:10 Benadryl IM Q6 PRN Extrapyramidal S/S Unable PO Diphenhydramine HCl 50 mg 02/04/18 22:10 Benadryl PO Q6 PRN Extrapyramidal Symptoms Diphenhydramine HCl 50 mg 02/04/18 22:10 Benadryl PO HS PRN Sleep Fenofibrate 145 mg 02/05/18 09:00 Tricor PO DAILY ARMIN Glipizide 10 mg 02/05/18 08:00 Glucotrol Xl PO BIDWM ARMIN Haloperidol 5 mg 02/04/18 22:10 Haldol PO Q4 PRN Agitation Haloperidol Lactate 5 mg 02/04/18 22:10 Haldol IM Q4 PRN Agitation, Unable to Take PO Lorazepam 1 mg 02/04/18 22:10 Ativan PO Q8 PRN Anxiety Magnesium Hydroxide 30 ml 02/04/18 22:10 Milk Of Magnesia PO HS PRN Constipation Pantoprazole Sodium 40 mg 02/05/18 09:00 Protonix Ec Tab PO BID ARMIN Ramipril 2.5 mg 02/05/18 09:00 Altace PO DAILY ARMIN Sitagliptin Phosphate 100 mg 02/05/18 09:00 Januvia PO DAILY ARMIN Past Psychiatric History - Past Psychiatric History Previous Treatment History: Inpatient Pertinent Medical Hx (Current Medical&Sleep Prob, Allergies): Allergies Allergy/AdvReac Type Severity Reaction Status Date / Time No Known Allergies Allergy Verified 02/04/18 13:06 Fenofibrate Nanocrystallized [Triglide] 160 mg PO DAILY 11/22/16 Glimepiride [amaRYL] 4 mg PO BID 11/22/16 Aspirin [Ecotrin] 81 mg PO DAILY tabec 11/27/16 Pantoprazole [Protonix EC Tab] 40 mg PO BID #60 ect 11/27/16 SITagliptin [Januvia] 100 mg PO DAILY #30 tab 11/27/16 Sertraline [Zoloft] 50 mg PO HS #30 tab 11/27/16 Mupirocin 2% Ointment [Bactroban Ointment] 1 appl TP BID #1 tube 10/11/17 ALPRAZolam [Xanax] 0.25 mg PO TID PRN 02/04/18 ARIPiprazole [Abilify] 15 mg PO HS 02/04/18 Ramipril [Altace] 2.5 mg PO DAILY 02/04/18 Mental Status Examination - Personal Presentation Personal Presentation: Looks older than stated age - Affect Affect: Other (Labile) - Motor Activity Motor Activity: Calm - Reliability in Providing Information Reliability in Providing Information: Poor, due to alteration in thoughts - Speech Speech: Coherent, Other (Poverty of speech) - Formal Thought Process Formal Thought Process: Hallucinations, Paranoia - Hallucinations/Delusions Hallucinations: Auditory - Obsessions/Compulsions Obsessions: No Compulsions: No - Cognitive Functions Orientation: Person, Place, Situation, Time Sensorium: Alert Estimate of Intelligence: Average Judgement: Imparied, as evidence by: Lack of insight into illness Memory: Recent intact, as evidence by: Ability to recall events of the day - Risk Risk: Suicidal, Diminished functioning - Strength & Assets Inventory Strength & Assets Inventory: Cooperative DSM 5 DX - DSM 5 DSM 5 Diagnosis: Schizoaffective Disorder - Recommended/Plan of Treatment Treatment Recommendations and Plan of Treatment: Schizoaffective Disorder -Admit to psychiatry unit -Individual and group therapy -Psychoeducation -Increase Zoloft -Increase Abilify -Medicine consult -Disposition planning Projected ELOS: 7-10 days Discharge Plan and Discharge Criteria: Discharge when patient is psychiatrically stable - Smoking Cessation Smoking Cessation Initiated: No Reason for not providing: Patient declined
[2018-02-05] MEDS: GlipiZIDE 10 mg SR Tab PO SCH ×2 (08:52→16:41)
[2018-02-05] MEDS: Pantoprazole 40 mg EC Tab PO SCH ×2 (08:53→16:40)
[2018-02-05] MEDS ORDERED: FENOFIBRATE NANOCRYSTALLIZED 160 MG PO SCH (09:00)
--- NOTE | 2018-02-05 09:43 | RAD ---
Date of service: 02/04/2018 HISTORY: admit COMPARISON: 12/01/2017 TECHNIQUE: Chest PA and lateral FINDINGS: LUNGS: No active pulmonary disease. PLEURA: No significant pleural effusion identified. No pneumothorax apparent. CARDIOVASCULAR: No aortic atherosclerotic calcification present. Normal cardiac size. No pulmonary vascular congestion. OSSEOUS STRUCTURES: Mid thoracic moderate spondylosis.-similar VISUALIZED UPPER ABDOMEN: Normal. OTHER FINDINGS: None. IMPRESSION: No interval pathology noted. No acute cardiopulmonary appreciated.
[2018-02-05 18:49] LABS: RAPID PLASMA REAGIN REACTIVE (NONREACTIVE)
--- NOTE | 2018-02-06 08:36 | PCM.PYCHPN ---
Psychiatric Progress Note - Psychiatric Progress Note Patient seen today, length of contact: Pt evaluated, case discussed w/ team, chart reviewed Patient Chief Complaint: "I wanted to kill myself." Problems Identified/Issues Discussed: Patient continues to report feeling depressed w/ low energy/motivation, poverty of speech. He denies acute SI. He reports intermittent AH, but does not recall what they say. He denies acute paranoia. Diagnostic Results: +RPR; h/o treatment for syphilis in 2014 Medication Change: No Medical Record Reviewed: Yes Consults ordered or reviewed: Medicine consult Mental Status Examination - Cognitive Function Orientation: Person, Place, Situation, Time Memory: Intact Attention: WNL Concentration: WNL Association: WNL Fund of Knowledge: [facility] Decription of patient's judgement and insights: Improving I/J - Mood Mood: Depressed, Anxious - Affect Affect: Constricted - Speech Speech: Soft - Formal Thought Process Formal Thought Process: Hallucinations, Paranoia Psychotic Thoughts and Behaviors: +Intermittent AH - Suicidal Ideation Suicidal Ideation: No - Homicidal Ideation Homicidal Ideation: No Goal/Treatment Plan - Goal/Treatment Plan Need for Continued Stay: Remain at risks for inpatient hospitalization, Severe depression anxiety Progress Toward Problem(s) and Goals/Treatment Plan: Schizoaffective Disorder -Individual and group therapy -Psychoeducation -Continue Abilify and Zoloft -Medicine consult -Disposition planning Estimated Date of D/C: 02/11/18
[2018-02-06] MEDS: Pantoprazole 40 mg EC Tab PO SCH ×2 (09:16→17:55)
[2018-02-06] MEDS: GlipiZIDE 10 mg SR Tab PO SCH (09:17)
--- NOTE | 2018-02-06 13:54 | CP.PCM.CON ---
History of Present Illness - History of Present Illness History of Present Illness: 57 yo male with history of schizoaffective DO and DM2 admitted to psyche unit because of suicidal ideation Review of Systems - Review of Systems All systems: reviewed and no additional remarkable complaints except (aside from those mentioned above, 12 point system review were negative by me) Past Patient History - Infectious Disease Hx of Infectious Diseases: None - Tetanus Immunizations Tetanus Immunization: Unknown - Past Medical History & Family History Past Medical History?: Yes - Past Social History Smoking Status: Light Smoker < 10 Cigarettes Daily Chewing Tobacco Use: No Cigar Use: No Alcohol: None Drugs: Denies - CARDIAC Hx Hypercholesterolemia: Yes Hx Hypertension: No - PULMONARY Hx Respiratory Disorders: No Hx Tuberculosis: No - NEUROLOGICAL Hx Seizures: No - HEENT Hx HEENT Problems: Yes Other/Comment: WEARS GLASSES FOR FARSIGHTEDNESS - RENAL Hx Chronic Kidney Disease: No - ENDOCRINE/METABOLIC Hx Endocrine Disorders: Yes ("pre diabetic") Hx Diabetes Mellitus Type 2: Yes Other/Comment: pt also stating he has thyroid problems unable to specify - HEMATOLOGICAL/ONCOLOGICAL Hx Human Immunodeficiency Virus (HIV): No - INTEGUMENTARY Hx Dermatological Problems: No - MUSCULOSKELETAL/RHEUMATOLOGICAL Hx Arthritis: Yes - GASTROINTESTINAL Hx Gastrointestinal Disorders: No - GENITOURINARY/GYNECOLOGICAL Hx Sexually Transmitted Disorders: No - PSYCHIATRIC Hx Bipolar Disorder: Yes Hx Depression: Yes Hx Physical Abuse: No Hx Sexual Abuse: No Hx Substance Use: No - SURGICAL HISTORY Hx Surgeries: No - ANESTHESIA Hx Anesthesia: No Meds Allergies/Adverse Reactions: Allergies Allergy/AdvReac Type Severity Reaction Status Date / Time No Known Allergies Allergy Verified 02/04/18 13:06 - Medications Medications: Current Medications Acetaminophen (Tylenol 325mg Tab) 650 mg PO Q4 PRN PRN Reason: Pain, moderate (4-7) Al Hydrox/Mg Hydrox/Simethicone (Maalox Plus 30 Ml) 30 ml PO Q4 PRN PRN Reason: Dyspepsia Aripiprazole (Abilify) 15 mg PO DAILY [facility] Last Admin: 02/06/18 09:15 Dose: 15 mg Aspirin (Ecotrin) 81 mg PO DAILY [facility] Last Admin: 02/06/18 09:17 Dose: 81 mg Diphenhydramine HCl (Benadryl) 50 mg IM Q6 PRN PRN Reason: Extrapyramidal S/S Unable PO Diphenhydramine HCl (Benadryl) 50 mg PO Q6 PRN PRN Reason: Extrapyramidal Symptoms Diphenhydramine HCl (Benadryl) 50 mg PO HS PRN PRN Reason: Sleep Fenofibrate (Tricor) 145 mg PO DAILY [facility] Last Admin: 02/06/18 09:15 Dose: 145 mg Glipizide (Glucotrol Xl) 10 mg PO BIDWM [facility] Last Admin: 02/06/18 09:17 Dose: 10 mg Haloperidol (Haldol) 5 mg PO Q4 PRN PRN Reason: Agitation Haloperidol Lactate (Haldol) 5 mg IM Q4 PRN PRN Reason: Agitation, Unable to Take PO Lorazepam (Ativan) 0.5 mg PO Q6 PRN PRN Reason: Anxiety Lorazepam (Ativan) 2 mg IM Q8 PRN PRN Reason: Agitation Magnesium Hydroxide (Milk Of Magnesia) 30 ml PO HS PRN PRN Reason: Constipation Pantoprazole Sodium (Protonix Ec Tab) 40 mg PO BID [facility] Last Admin: 02/06/18 09:16 Dose: 40 mg Ramipril (Altace) 2.5 mg PO DAILY [facility] Last Admin: 02/05/18 08:54 Dose: Not Given Sertraline HCl (Zoloft) 100 mg PO DAILY [facility] Last Admin: 02/06/18 09:17 Dose: 100 mg Sitagliptin Phosphate (Januvia) 100 mg PO DAILY [facility] Last Admin: 02/06/18 09:15 Dose: 100 mg Physical Exam - Constitutional Appears: No Acute Distress - Head Exam Head Exam: ATRAUMATIC - Eye Exam Eye Exam: absent: Scleral icterus - ENT Exam ENT Exam: Mucous Membranes Moist - Neck Exam Neck exam: Negative for: Meningismus - Respiratory Exam Respiratory Exam: absent: Rales, Rhonchi, Wheezes, Respiratory Distress - Cardiovascular Exam Cardiovascular Exam: REGULAR RHYTHM, +S1, +S2 - GI/Abdominal Exam GI & Abdominal Exam: Soft. absent: Tenderness - Rectal Exam Rectal Exam: Deferred - Extremities Exam Extremities exam: Negative for: calf tenderness, pedal edema - Neurological Exam Neurological exam: Alert, Oriented x3 - Psychiatric Exam Psychiatric exam: Normal Affect - Skin Skin Exam: Dry Results - Vital Signs Recent Vital Signs: Last Vital Signs Temp 97.5 F L 02/06/18 05:57 Pulse 54 L 02/06/18 05:57 Resp 20 02/06/18 05:57 BP 114/58 L 02/06/18 05:57 Pulse Ox 97 02/04/18 20:52 - Labs Result Diagrams: 02/04/18 14:19 02/04/18 14:19 Labs: Laboratory Results - last 24 hr 02/04/18 02/05/18 02/05/18 22:30 05:30 05:32 POC Glucose (mg/dL) 145 H 97 RPR Titer 1:2 H RPR Reactive H 02/05/18 02/05/18 02/05/18 11:39 15:29 20:59 POC Glucose (mg/dL) 84 99 60 L RPR Titer RPR 02/06/18 05:43 POC Glucose (mg/dL) 72 RPR Titer RPR Assessment & Plan (1) Suicidal ideation Status: Acute Comment: psyche is managing (2) DM2 (diabetes mellitus, type 2) Status: Chronic Comment: BS controlled. continue Glipizide and Januvia
[2018-02-07] MEDS: Pantoprazole 40 mg EC Tab PO SCH ×2 (08:24→17:00)
[2018-02-07] MEDS ORDERED: GlipiZIDE 10 mg SR Tab PO SCH (09:00)
--- NOTE | 2018-02-07 09:58 | PCM.PYCHPN ---
Psychiatric Progress Note - Psychiatric Progress Note Patient seen today, length of contact: Pt evaluated, case discussed w/ team, chart reviewed Patient Chief Complaint: "I wanted to kill myself." Problems Identified/Issues Discussed: Patient reports that he continues to feel depressed. He is more organized and engaged in the community. He denies acute AH/paranoia. He denies adverse effects to medications. No acute SI. Diagnostic Results: +RPR; h/o treatment for syphilis in 2014 Medication Change: No Medical Record Reviewed: Yes Consults ordered or reviewed: Medicine consult Mental Status Examination - Cognitive Function Orientation: Person, Place, Situation, Time Memory: Intact Attention: WNL Concentration: WNL Association: WNL Fund of Knowledge: [facility] Decription of patient's judgement and insights: Improving I/J - Mood Mood: Depressed, Anxious - Affect Affect: Constricted - Speech Speech: Soft - Formal Thought Process Formal Thought Process: Circumstantial Psychotic Thoughts and Behaviors: Denies acute AH/paranoia - Suicidal Ideation Suicidal Ideation: No - Homicidal Ideation Homicidal Ideation: No Goal/Treatment Plan - Goal/Treatment Plan Need for Continued Stay: Remain at risks for inpatient hospitalization, Severe depression anxiety Progress Toward Problem(s) and Goals/Treatment Plan: Schizoaffective Disorder -Individual and group therapy -Psychoeducation -Continue Abilify and Zoloft -Medicine consult -Disposition planning Estimated Date of D/C: 02/11/18
[2018-02-08] MEDS: Pantoprazole 40 mg EC Tab PO SCH ×2 (08:42→16:37)
--- NOTE | 2018-02-08 13:17 | PCM.PYCHPN ---
Psychiatric Progress Note - Psychiatric Progress Note Patient seen today, length of contact: Pt evaluated, case discussed w/ team, chart reviewed Patient Chief Complaint: I am better today Problems Identified/Issues Discussed: pt seen in bed , cooperative reported improved mood, speech underproductive, no reported side effects of medications, denied S/H I denied command hallucinations DSM 5 Symptoms Update: schizoaffective disorder Medication Change: No Medical Record Reviewed: Yes Mental Status Examination - Cognitive Function Orientation: Person, Place, Situation, Time Memory: Intact Attention: WNL Concentration: WNL Association: WNL Fund of Knowledge: WNL - Mood Mood: Depressed, Anxious - Affect Affect: Constricted - Speech Speech: Soft - Formal Thought Process Formal Thought Process: Circumstantial - Suicidal Ideation Suicidal Ideation: No - Homicidal Ideation Homicidal Ideation: No Goal/Treatment Plan - Goal/Treatment Plan Need for Continued Stay: Remain at risks for inpatient hospitalization, Severe depression anxiety Progress Toward Problem(s) and Goals/Treatment Plan: continue current medication group and supportive therapy Estimated Date of D/C: 02/11/18
[2018-02-09] MEDS: Pantoprazole 40 mg EC Tab PO SCH ×2 (08:35→16:59)
--- NOTE | 2018-02-09 11:17 | PCM.PYCHPN ---
Psychiatric Progress Note - Psychiatric Progress Note Patient seen today, length of contact: Pt evaluated, case discussed w/ team, chart reviewed Patient Chief Complaint: I am resting Problems Identified/Issues Discussed: pt seen in bed ,reported better mood, constricted affect, cooperative, speech underproductive, no reported side effects of medications, denied S/H I denied command hallucinations DSM 5 Symptoms Update: schizoaffective disorder Medication Change: No Medical Record Reviewed: Yes Mental Status Examination - Cognitive Function Orientation: Person, Place, Situation, Time Memory: Intact Attention: WNL Concentration: WNL Association: WNL Fund of Knowledge: WNL - Mood Mood: Depressed, Anxious - Affect Affect: Constricted - Speech Speech: Soft - Formal Thought Process Formal Thought Process: Circumstantial - Suicidal Ideation Suicidal Ideation: No - Homicidal Ideation Homicidal Ideation: No Goal/Treatment Plan - Goal/Treatment Plan Need for Continued Stay: Remain at risks for inpatient hospitalization, Severe depression anxiety Progress Toward Problem(s) and Goals/Treatment Plan: continue current medication group and supportive therapy Estimated Date of D/C: 02/11/18
[2018-02-10 05:26] VITALS: TEMP 98.1
[2018-02-10] MEDS: Pantoprazole 40 mg EC Tab PO SCH ×2 (08:27→16:42)
--- NOTE | 2018-02-10 08:41 | PCM.PYCHPN ---
Psychiatric Progress Note - Psychiatric Progress Note Patient seen today, length of contact: Pt evaluated, case discussed w/ team, chart reviewed Patient Chief Complaint: "I'm feeling better." Problems Identified/Issues Discussed: Patient reports that his mood is improving. He denies AH or SI. He feels less paranoid overall, but reports that he usually has chronic mild intermittent paranoia at baseline. He does not want to increase the dosage of Abilify at this time. He denies adverse effects to medications. Diagnostic Results: +RPR; h/o treatment for syphilis in 2014 Medication Change: No Medical Record Reviewed: Yes Consults ordered or reviewed: Medicine consult Mental Status Examination - Cognitive Function Orientation: Person, Place, Situation, Time Memory: Intact Attention: WNL Concentration: WNL Association: WNL Fund of Knowledge: [facility] Decription of patient's judgement and insights: Improving I/J - Mood Mood: Anxious - Affect Affect: Constricted - Speech Speech: Soft - Formal Thought Process Formal Thought Process: No Impairment Psychotic Thoughts and Behaviors: Denies acute paranoia or persecutory delusions - Suicidal Ideation Suicidal Ideation: No - Homicidal Ideation Homicidal Ideation: No Goal/Treatment Plan - Goal/Treatment Plan Need for Continued Stay: Severe depression anxiety Progress Toward Problem(s) and Goals/Treatment Plan: Schizoaffective Disorder -Individual and group therapy -Psychoeducation -Continue Abilify and Zoloft -Medicine consult -Disposition planning- likely discharge tomorrow as patient is improving clinically Estimated Date of D/C: 02/11/18
[2018-02-10 16:10] VITALS: PULSE 54
[2018-02-11 05:43] VITALS: BP 94/50; RESP 19
[2018-02-11] MEDS: Pantoprazole 40 mg EC Tab PO SCH (08:19)
--- NOTE | 2018-02-11 08:35 | PCM.PYCHDC ---
Mental Status Examination - Mental Status Examination Orientation: Person, Place, Situation, Time Memory: Intact Mood: Neutral Affect: Broad Speech: Appropriate Attention: WNL Concentration: WNL Association: WNL Fund of Knowledge: WNL Formal Thought Process: No Impairment Description of patient's judgement and insight: Good I/J Psychotic Thoughts and Behaviors: No AH/VH/paranoia/delusions Suicidal Ideation: No Current Homicidal Ideation?: No Discharge Summary - Discharge Note Reason for Hospitalization: HPI: 57 yo male w/ h/o schizoaffective disorder, presents w/ suicidal ideation, acute paranoia that he is being followed by some unknown men, auditory hallucinations (patient can not specify what they are saying). Patient reports that 3 weeks ago he wanted to overdose on pills, but he did not do it. He reports feeling depressed, w/ poor energy/concentration. PPH: H/o Schizoaffective disorder vs Bipolar disorder; currently in outpatient treatment on Abilify 10 mg PO Daily, Zoloft 50 mg PO Daily; h/o prior hospitalizations PMH: HLD, DMII, HTN, GERD, h/o treatment for syphilis ALL: [facility] SH: Denies drugs/ etoh use; 3 cigs/ day; declined smoked cessation; lives w/ brother FH: MOM: DM and Head cancer, at age 84 DAD: DM and stomach cancer, at age 86 Consultations:: List each consultation separately and include: 1. Reason for request. 2. Findings. 3. Follow-up Consultations: Medicine consult Summary of Hospital Course include:: 1. Description of specific treatment plan utilized for patients during their course of treatmen. 2. Summarize the time- course for resolution of acute symptoms and/or regressed behaviors. 3. Describe issues identified and worked on during hospitalization. 4. Describe medication utilized. 5. Describe medical problems identified and treated. 6. Reassessment of suicide risk Summary of Hospital Course: Patient was admitted to the psychiatry unit. Individual and group therapy were provided. Patient was stabilized on Abilify 15 mg PO Daily and Zoloft 100 mg PO Daily. He denies acute depression/anxiety/AH/VH/paranoia/delusions. He is psychiatrically stable for discharge with outpatient psychiatric follow-up. - Diagnosis (1) Schizoaffective disorder Current Visit: No Status: Chronic Comment: Mgt by Psych Pt on Abilify and [place] - Final Diagnosis (DSM 5) Condition upon Discharge: STABLE DSM 5: Schizoaffective Disorder Disposition: HOME/ ROUTINE Follow-up Treatment Plan: Schizoaffective Disorder -Individual and group therapy -Psychoeducation -Continue Abilify and Zoloft -Medicine consult -Discharge with outpatient follow-up Prescriptions/Medication Reconciliation: ARIPiprazole [Abilify] 15 mg PO DAILY #30 tab Sertraline [Zoloft] 100 mg PO DAILY #30 tab - Smoking Cessation Smoking Cessation Medication prescribed: No Reason for not providing: Patient declined - Antipsychotic Medications Pt discharged on 2 or more routine antipsychotic medications: No
== END 2018-02-11 09:35 | disposition home or self-care (01) | DRG 430 ==
LOC: H.ER 13:00 → H.ERHOLD 19:56 → H.STEP 22:01
PROVIDERS: ADMIT Psychiatry & Neurology Psychiatry; ATTEND Psychiatry & Neurology Psychiatry
PROC: GZHZZZZ Group Psychotherapy (ICD-10-PCS; principal; 2018-02-04)
PROC: GZ58ZZZ Individual Psychotherapy, Cognitive-Behavioral (ICD-10-PCS; 2018-02-04)
DX: F25.9 Schizoaffective disorder, unspecified (principal); R45.851 Suicidal ideations; F41.9 Anxiety disorder, unspecified; K21.9 Gastro-esophageal reflux disease without esophagitis; E11.9 Type 2 diabetes mellitus without complications; I10 Essential (primary) hypertension; E78.5 Hyperlipidemia, unspecified; E78.00 Pure hypercholesterolemia, unspecified; F17.210 Nicotine dependence, cigarettes, uncomplicated; Z79.899 Other long term (current) drug therapy; Z86.19 Personal history of other infectious and parasitic diseases

== ENCOUNTER 2018-02-24 11:50 | Emergency (ER) | payer MEDICAID ==
[2018-02-24 11:50] VITALS: BMI 39.1
[2018-02-24 12:15] VITALS: BP 117/71; PULSE 67; RESP 16; TEMP 98.3; O2SAT 98
--- NOTE | 2018-02-24 12:45 | ED PDOC ---
HPI: Psych/Substance Abuse Time Seen by Provider: 02/24/18 12:26 Chief Complaint (Nursing): Med Refill Chief Complaint (Provider): Med Refill History Per: Patient History/Exam Limitations: no limitations Severity: Moderate Associated Symptoms: denies: Suicidal Thoughts, Suicidal Plan, Other (homicidal ideation, hallucinations) Involuntary Hold By: None Additional Complaint(s): 58 year old male with a past medical history of schizophrenia presents to the ED for a medication refill. Patient was recently discharged home from psychiatry (upstairs) by with a prescription for abilify 15 mg daily and zoloft 100 mg daily. The prescription was sent to the patient's pharmacy, but he decided to wait on picking them up, as he had some left at home. When patient depleted his supply, he went to his pharmacy to draft roller picker his prescription, but was told it was no longer available, prompting his ED visit today. Patient denies having any complaints at this time, and denies having suicidal ideation, homicidal ideation, and hallucinations. PMD: Vladimir Calle MD Past Medical History Reviewed: Historical Data, Nursing Documentation, Vital Signs Vital Signs: Last Vital Signs Temp 98.3 F 02/24/18 12:12 Pulse 67 02/24/18 12:12 Resp 16 02/24/18 12:12 BP 117/71 02/24/18 12:12 Pulse Ox 98 02/24/18 12:12 MARGARET report viewed?: Yes - Medical History PMH: Anxiety, Arthritis, Bipolar Disorder, Depression, Diabetes, Hypercholesterolemia, Schizophrenia Denies: Hepatitis, HIV, HTN, Chronic Kidney Disease, Seizures, Sexually Transmitted Disease - Surgical History Surgical History: No Surg Hx - Family History Family History: States: Hypertension - Social History Current smoker - smoking cessation education provided: Yes Alcohol: None Drugs: Denies - Home Medications Home Medications: Ambulatory Orders Medication Instructions Recorded Fenofibrate Nanocrystallized 160 mg PO DAILY 11/22/16 [Triglide] Aspirin [Ecotrin] 81 mg PO DAILY [facility] 11/27/16 Pantoprazole [Protonix EC Tab] 40 mg PO BID #60 ect 11/27/16 ARIPiprazole [Abilify] 15 mg PO DAILY #30 tab 02/10/18 Sertraline [Zoloft] 100 mg PO DAILY #30 tab 02/10/18 ARIPiprazole [Abilify] 15 mg PO DAILY #14 tab 02/24/18 Sertraline [Zoloft] 100 mg PO DAILY #14 tab 02/24/18 - Allergies Allergies/Adverse Reactions: Allergies Allergy/AdvReac Type Severity Reaction Status Date / Time No Known Allergies Allergy Verified 02/04/18 13:06 Review of Systems ROS Statement: Except As Marked, All Systems Reviewed And Found Negative Psych: Negative for: Suicidal ideation, Other (homicidal ideation, hallucinations) Physical Exam - Reviewed Nursing Documentation Reviewed: Yes Vital Signs Reviewed: Yes - Physical Exam Appears: Positive for: Well, Non-toxic, No Acute Distress Head Exam: Positive for: ATRAUMATIC, NORMOCEPHALIC Skin: Positive for: Normal Color, Warm, Dry Eye Exam: Positive for: Normal appearance Cardiovascular/Chest: Positive for: Regular Rate, Rhythm Respiratory: Positive for: Normal Breath Sounds Gastrointestinal/Abdominal: Positive for: Normal Exam, Soft. Negative for: Tenderness Neurologic/Psych: Positive for: Alert, Oriented (3x), Mood/Affect (calm, cooperative, happy) - ECG O2 Sat by Pulse Oximetry: 98 (RA) Pulse Ox Interpretation: Normal Medical Decision Making Medical Decision Makin:26 Initial impression: 58 year old male in the ED for a medication refill Initial plan: -- crisis evaluation 12:43 Patient evaluated by Ruba, community health worker, who spoke with patient and discussed case with psychiatrist, and cleared him for discharge. Mental health clinic appointment made by Ruba for 03/06/2018 at 9 AM. Patient is made aware of follow up appointment, and has verbalized agreement to follow up appointment. Scribe Attestation: Documented by Rochelle Bergman, acting as a scribe for Haile Srinivasan Provider Scribe Attestation: All medical record entries made by the Scribe were at my direction and personally dictated by me. I have reviewed the chart and agree that the record accurately reflects my personal performance of the history, physical exam, medical decision making, and the department course for this patient. I have also personally directed, reviewed, and agree with the discharge instructions and disposition. Disposition - Clinical Impression Clinical Impression: Medicine refill - Patient ED Disposition Is Patient to be Admitted: No - Disposition Referrals: [facility] [Outside] Disposition: Routine/Home Disposition Time: 12:43 Condition: STABLE Additional Instructions: MENTAL HEALTH FOLLOW UP [address] [id number] YOU HAVE AN APPOINTMENT ON MARCH 06, 2018 AT 9AM WITH LIAM JIMENEZ Prescriptions: ARIPiprazole [Abilify] 15 mg PO DAILY #14 tab Sertraline [Zoloft] 100 mg PO DAILY #14 tab Instructions: Where to Get Help Paying for Your Prescriptions Forms: [employer] ([place])
== END 2018-02-24 13:31 | disposition home or self-care (01) ==
LOC: H.ER 11:50
DX: Z76.0 Encounter for issue of repeat prescription (principal); Z86.59 Personal history of other mental and behavioral disorders; E11.9 Type 2 diabetes mellitus without complications; F17.200 Nicotine dependence, unspecified, uncomplicated; Z79.899 Other long term (current) drug therapy

== ENCOUNTER 2018-06-21 16:09 | Inpatient (IN) | payer MEDICAID ==
[2018-06-21 16:58] LABS: SQUAMOUS EPITHIAL < 1 /hpf (0-5); URINE BACTERIA RARE (<OCC); URINE BILIRUBIN SMALL (NEGATIVE); URINE BLOOD NEGATIVE (NEGATIVE); URINE CLARITY SLIGHTY-CLOUDY (Clear); URINE COLOR AMBER (YELLOW); URINE GLUCOSE (UA) NEG (NEGATIVE); URINE LEUKOCYTE ESTERASE NEG Leu/uL (Negative); URINE PROTEIN 100 mg/dL (NEGATIVE)
[2018-06-21 16:59] LABS: URINE UROBILINOGEN 0.2-1.0 mg/dL (0.2-1.0)
[2018-06-21 17:00] LABS: BASO % 0.2 % (0.0-2.0); EOS # 0.1 K/uL (0.0-0.7); EOS % 0.8 % (0.0-4.0); HEMOGLOBIN 13.9 g/dL (12.0-18.0); LYMPH # 1.4 K/uL (1.0-4.3); LYMPH % 22.5 % (20.0-40.0); MEAN CELL VOLUME 89.3 fl (80.0-94.0); MEAN CORPUSCULAR HEMOGLOBIN 30.4 pg (27.0-31.0); MEAN CORPUSCULAR HGB CONC 34.1 g/dL (33.0-37.0); MEAN PLATELET VOLUME 7.8 fl (7.2-11.7); MONO # 0.3 K/uL (0.0-0.8); MONO % 4.9 % (0.0-10.0); NEUT # 4.6 K/uL (1.8-7.0); NEUT % 71.6 % (50.0-75.0); NRBC % 0.1 % (0.0-0.0); RBC 4.58 Mil/uL (4.40-5.90); RED CELL DISTRIBUTION WIDTH 13.8 % (11.5-14.5); WHITE BLOOD COUNT 6.4 K/uL (4.8-10.8)
--- NOTE | 2018-06-21 17:02 | ED PDOC ---
HPI: Psych/Substance Abuse Time Seen by Provider: 06/21/18 16:20 Chief Complaint (Nursing): Psychiatric Evaluation Chief Complaint (Provider): Psychiatric evaluation History Per: Patient History/Exam Limitations: no limitations Onset/Duration Of Symptoms: Days (2x) Current Symptoms Are (Timing): Still Present Severity: Moderate Associated Symptoms: Paranoia. denies: Suicidal Thoughts Additional Complaint(s): 58 year old male with a past medical history of bipolar disorder is sent to the ED by his psychiatrist for a psychiatric evaluation of suicidal ideation, homicidal ideation, and bipolar disorder. Patient reports feeling paranoid, stating that he feels as if he is being followed. Patient is also paranoid about his coffee being poisoned. Patient further reports having a verbal altercation with his sister's . Patient reports having a loss of appetite stating that he has been unable to eat since yesterday and having left knee (arthritic) pain. Patient denies having suicidal ideation (but states that he had an attempt in 02/2018), homicidal ideations, attempts at self injury, drug use. Patient do es admit to smoking cigarettes and to drinking alcohol 3x times this month. Psychoterapist: Vladimir Guy MD PMD: Pepito Bhandari MD Past Medical History Reviewed: Historical Data, Nursing Documentation, Vital Signs Vital Signs: Last Vital Signs Temp 99.3 F 06/21/18 16:16 Pulse 72 06/21/18 16:16 Resp 16 06/21/18 16:16 BP 115/70 06/21/18 16:16 Pulse Ox 98 06/21/18 16:16 MARGARET Report Viewed: Yes - Medical History PMH: Anxiety, Arthritis, Bipolar Disorder, Depression, Diabetes, Hypercholesterolemia, Schizophrenia Denies: Hepatitis, HIV, HTN, Chronic Kidney Disease, Seizures, Sexually Transmitted Disease - Family History Family History: States: Hypertension - Social History Current smoker - smoking cessation education provided: Yes Alcohol: Occasional Drugs: Denies - Home Medications Home Medications: Ambulatory Orders Medication Instructions Recorded ARIPiprazole [Abilify] 15 mg PO DAILY #30 tab 02/10/18 Sertraline [Zoloft] 100 mg PO DAILY #14 tab 02/24/18 Alprazolam [Xanax] 0.25 mg PO BID 06/21/18 Aspirin [Aspirin Chewable] 81 mg PO DAILY 06/21/18 Ergocalciferol (Vitamin D2) 1 tab PO QWK 06/21/18 [Vitamin D2] Fenofibrate [Triglide] 160 mg PO DAILY 06/21/18 Glimepiride [amaRYL] 4 mg PO BID 06/21/18 Pantoprazole [Protonix EC Tab] 40 mg PO DAILY 06/21/18 Ramipril [Altace] 2.5 mg PO DAILY 06/21/18 SITagliptin [Januvia] 1 tab PO DAILY 06/21/18 - Allergies Allergies/Adverse Reactions: Allergies Allergy/AdvReac Type Severity Reaction Status Date / Time No Known Allergies Allergy Verified 02/04/18 13:06 Review of Systems ROS Statement: Except As Marked, All Systems Reviewed And Found Negative Constitutional: Positive for: Other (loss of appetite) Psych: Positive for: Other (paranoia. (-) homicidal ideation.). Negative for: Suicidal ideation Physical Exam - Reviewed Nursing Documentation Reviewed: Yes Vital Signs Reviewed: Yes - Physical Exam Comments: GENERAL APPEARANCE: Patient is awake, alert, oriented x 3, in no acute distress. SKIN: Warm, dry; (-) cyanosis HEAD: (-) scalp swelling, (-) scalp tenderness. EYES: (-) conjunctival pallor, (-) scleral icterus, (-) nystagmus. ENMT: Mucous membranes moist. Airway patent: (-) stridor. NECK: (-) tenderness, (-) stiffness, (-) lymphadenopathy. HEART AND CARDIOVASCULAR: (-) irregularity; (-) murmur, (-) gallop. CHEST AND RESPIRATORY: (-) rales, (-) rhonchi, (-) wheezes; breath sounds equal. ABDOMEN: Soft, (-) distention, (-) tenderness, (-) guarding. NEURO AND PSYCH: Mental status as above. Affect: tangential thinkinig, liable. Patient breaks down crying during examination. aerodynamicist: Intact. Pupils equal and reactive; EOMI; (-) facial asymmetry; tongue and uvula midline. Strength and DTRs symmetric. - Laboratory Results Result Diagrams: 06/21/18 16:49 06/21/18 16:49 - ECG ECG: Positive for: Interpreted By Me, Viewed By Me ECG Rhythm: Positive for: Normal QRS, Sinus Bradycardia (51). Negative for: ST/T Changes Interpretation Of Abn EKG: Discussed with Dr. Lozada who reviewed the EKG as well. Otherwise, vitals in ED do not show bradycardia, and patient denies having any complaints. Interpretation Of ECG: sinus bradycardic 51 Pulse Ox Interpretation: Normal - Radiology X-Ray: Viewed By Me, Read By Radiologist (see MDM note) Medical Decision Making Medical Decision Makin:20 Initial impression: 58 year old male in the ED for a psychiatric evaluation Initial plan: * XRay chest 2 views * alcohol serum * CMP * drug screen urinary * CBC with differential * glucose, POC * urinalysis * 1:1 observation * crisis evaluation * reevaluation 17:07 XRay chest read and reviewed by radiologist FINDINGS: LUNGS: No active pulmonary disease. PLEURA: No significant pleural effusion identified. No pneumothorax apparent. CARDIOVASCULAR: No aortic atherosclerotic calcification present. Normal cardiac size. No pulmonary vascular congestion. OSSEOUS STRUCTURES: Degenerative changes are seen in the spine. VISUALIZED UPPER ABDOMEN: Normal. OTHER FINDINGS: None. IMPRESSION: No active disease. 17:42 pt seen by crisis and will be admitted for schizoaffective disorder, bipolar type, Dr. hernandes Discussed diagnosis, and plan for admission with pt who is understanding and in agreement Scribe Attestation: Documented by Rochelle Bergman, acting as a scribe for Krzysztof Lowery PA-C. Provider Scribe Attestation: All medical record entries made by the Scribe were at my direction and personally dictated by me. I have reviewed the chart and agree that the record accurately reflects my personal performance of the history, physical exam, medical decision making, and the department course for this patient. I have also personally directed, reviewed, and agree with the discharge instructions and disposition. Disposition - Clinical Impression Clinical Impression: Schizoaffective disorder, bipolar type - Patient ED Disposition Is Patient to be Admitted: Yes Doctor Will See Patient In The: Hospital - Disposition Disposition Time: 17:43 Condition: STABLE - Pt Status Changed To: Hospital Disposition Of: Inpatient - Admit Certification Admit to Inpatient:: After my assessment, the patient will require hospitalization for at least two midnights. This is because of the severity of symptoms shown, intensity of services needed, and/or the medical risk in this patient being treated as an outpatient. - POA Present On Arrival: None
[2018-06-21 17:10] LABS: ALB/GLOB RATIO 1.6 (1.0-2.1); ALBUMIN 4.4 g/dL (3.5-5.0); ALT/SGPT 47 U/L (21-72); AST/SGOT 56 U/L (17-59); BLOOD UREA NITROGEN 17 mg/dl (9-20); CALCIUM 9.4 mg/dL (8.4-10.2); GFR NON-AFRICAN AMERICAN > 60
--- NOTE | 2018-06-21 17:11 | RAD ---
Date of service: 06/21/2018 HISTORY: crisis COMPARISON: 02/04/2018 TECHNIQUE: Chest PA and lateral views FINDINGS: LUNGS: No active pulmonary disease. PLEURA: No significant pleural effusion identified. No pneumothorax apparent. CARDIOVASCULAR: No aortic atherosclerotic calcification present. Normal cardiac size. No pulmonary vascular congestion. OSSEOUS STRUCTURES: Degenerative changes are seen in the spine. VISUALIZED UPPER ABDOMEN: Normal. OTHER FINDINGS: None. IMPRESSION: No active disease.
[2018-06-21 17:26] LABS: BARBITURATES, UR NEGATIVE (NEGATIVE); BENZODIAZEPINES, UR NEGATIVE (NEGATIVE); OPIATES, UR NEGATIVE (NEGATIVE); PHENCYCLIDINE, UR NEGATIVE (NEGATIVE)
[2018-06-21 21:00] VITALS: O2SAT 98
[2018-06-21] MEDS ORDERED: DiphenhydrAMINE 50 mg/ml Inj IM PRN (21:48)
[2018-06-21] MEDS ORDERED: Alum-Mag Hydrox-Simethicone Susp (30 mL) PO PRN (21:48)
[2018-06-21] MEDS ORDERED: Magnesium Hydroxide Susp 30 ml UD PO PRN (21:48)
--- NOTE | 2018-06-21 23:02 | PCM.BM ---
<Desire Forrester - Last Filed: 06/21/18 22:50> Treatment Plan Problems - Problems identified on initial assessmt command/auditory hallucination Date Initiated: 06/21/18 Time Initiated: 22:00 Assessment reference: NA Status: Active high risk:violence Date Initiated: 06/21/18 Time Initiated: 22:00 Assessment reference: NA Status: Active ineffective coping Date Initiated: 06/21/18 Time Initiated: 22:00 Assessment reference: NA Status: Active Treatment assets and liabiliti Patient Assests: cooperative, resourceful, ADL independent, negotiates basic needs, good past tx response Patient Liabilities: financial problems, poor support system, relationship conflicts, dietary restrictions, medical problems - Milieu Protocol Maintain good personal hygiene: daily Encourage regular showers, daily Assist patient to perform ADL's, every shift Remind patient to perform daily oral care Conduct patient checks and document Observation sheet: Q15 minutes Maintain personal safety: every shift Educate patient to report safety concerns to staff, every shift Monitor environment for contraband/sharps Medication safety: Monitor for expected outcome, potential side effects: every shift, Assess barriers to learning: every shift, Assess readiness for medication education: every shift Family Contact Family involvement: Famliy/SO not involved <Shauna Hood - Last Filed: 06/24/18 15:08> - Diagnosis (1) Schizoaffective disorder, bipolar type Status: Acute Interventions: start mood stabilizerand antipsychotic/ abilify 06/24/18 15:08 (2) Positive RPR test Status: Acute Interventions: internal medicine consult / start penicillin 06/24/18 15:09 <Cortes Nieves - Last Filed: 06/28/18 09:16> Family Contact Family involvement: Famliy/SO not involved Family contact: Patient declines to allow family contact at present Family contact name: Pt denied. - Goals for Treatment Patient goals for treatment: Pt unable to create specific goals for treatment at this time due to paranoid delusions toward his [id number] and others that he feel are going ot harm him. Pt is fixated on these paranoid thoughts and cannot refocus on anything else. Discharge/Continuing Care - Education Needs Education Needs: Patient Medication, Patient Diagnosis/Disease Process, Patient Coping Skills, Patient Community resources, Patient Aftercare Safety Plan - Discharge Discharge Criteria: Tolerates medication w/o severe side effects, Free of Suicidal thoughts, Free of paranoid thoughts, Free of agitation, Ability to care for self, Reduction of target symptoms Discharge to:: Home - Treatment Team Participation Patient/Family/SO Statement: 06/28/18 09:08 Pt seen in treatment team on 06/24/18. Pt presented as anxious and disheveled and fixated on paranoid delusions that his [id number] and strangers are out to get him. Pt wants to take legal action to remove his [id number] from his building. Pt reported that his psychiatrist, Dr. Taylor, will help him with this. Pt unable to focus on psychiatric symptoms or process information that staff is attempting to communicate. Pt's speech was pressured and tangential. Pt mood was anxious and affect was congruent. Pt's speech was fast but at a normal tone. Pt denied SI/HI and AVT hallucinations. Pt is oriented X3. Discussed with Family/SO: No Was Patient/Family/SO present at Treatment Team Meeting: Yes
[2018-06-22 07:06] LABS: HDL CHOLESTEROL 39 MG/DL (30-70)
[2018-06-22 07:19] LABS: LDL CHOLESTEROL 91 mg/dL (0-129)
--- NOTE | 2018-06-22 09:03 | CARD ---
APPROVED REPORT Date of service: 06/21/2018 EKG Measurement Heart [id number] <Conclusion> Sinus bradycardia Left anterior fascicular block Abnormal ECG
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
--- NOTE | 2018-06-22 14:31 | CP.PCM.CON ---
History of Present Illness - History of Present Illness History of Present Illness: 58 yo male with hsitory of schizoaffective DO admitted to psyche unit because of suicidal ideation Review of Systems - Review of Systems All systems: reviewed and no additional remarkable complaints except (aside from those mentioned above, 12 point system review were negative by me) Past Patient History - Infectious Disease Hx of Infectious Diseases: None - Tetanus Immunizations Tetanus Immunization: Unknown - Past Medical History & Family History Past Medical History?: Yes - Past Social History Smoking Status: Light Smoker < 10 Cigarettes Daily Chewing Tobacco Use: No Cigar Use: No Alcohol: Occasional Drugs: Denies - CARDIAC Hx Cardiac Disorders: Yes Other/Comment: bradycardia - PULMONARY Hx Respiratory Disorders: No - NEUROLOGICAL Hx Neurological Disorder: No - HEENT Hx HEENT Problems: Yes - RENAL Hx Chronic Kidney Disease: No - ENDOCRINE/METABOLIC Hx Endocrine Disorders: Yes Hx Diabetes Mellitus Type 2: Yes - HEMATOLOGICAL/ONCOLOGICAL Hx Blood Disorders: No - INTEGUMENTARY Hx Dermatological Problems: No - MUSCULOSKELETAL/RHEUMATOLOGICAL Hx Musculoskeletal Disorders: Yes - GASTROINTESTINAL Hx Gastrointestinal Disorders: No - GENITOURINARY/GYNECOLOGICAL Hx Genitourinary Disorders: No - PSYCHIATRIC Hx Anxiety: Yes Hx Bipolar Disorder: Yes Hx Depression: Yes - SURGICAL HISTORY Hx Surgeries: No - ANESTHESIA Hx Anesthesia: No Meds Allergies/Adverse Reactions: Allergies Allergy/AdvReac Type Severity Reaction Status Date / Time No Known Allergies Allergy Verified 02/04/18 13:06 - Medications Medications: Current Medications Acetaminophen (Tylenol 325mg Tab) 650 mg PO Q4 PRN PRN Reason: pain or headache 4-7 pain scal Al Hydrox/Mg Hydrox/Simethicone (Maalox Plus 30 Ml) 30 ml PO Q4 PRN PRN Reason: Dyspepsia Aripiprazole (Abilify) 20 mg PO HS ARMIN Diphenhydramine HCl (Benadryl) 50 mg IM Q6 PRN PRN Reason: Extrapyramidal S/S Unable PO Diphenhydramine HCl (Benadryl) 50 mg PO HS PRN PRN Reason: Extrapyramidal Symptoms Diphenhydramine HCl (Benadryl) 50 mg PO Q6 PRN PRN Reason: extrapyrimidal s/s Haloperidol (Haldol) 5 mg PO Q4 PRN PRN Reason: Agitation Haloperidol Lactate (Haldol) 5 mg IM Q4 PRN PRN Reason: Agitation, Unable to Take PO Lorazepam (Ativan) 2 mg IM Q4 PRN PRN Reason: Anxiety/Agitation,Unable PO Lorazepam (Ativan) 1 mg PO Q6 PRN PRN Reason: Agitation Magnesium Hydroxide (Milk Of Magnesia) 30 ml PO HS PRN PRN Reason: Constipation Sertraline HCl (Zoloft) 100 mg PO DAILY ARMIN Physical Exam - Constitutional Appears: No Acute Distress - Head Exam Head Exam: absent: ATRAUMATIC - Eye Exam Eye Exam: absent: Scleral icterus - ENT Exam ENT Exam: Mucous Membranes Moist - Neck Exam Neck exam: Negative for: Meningismus - Respiratory Exam Respiratory Exam: absent: Rales, Rhonchi, Wheezes, Respiratory Distress - Cardiovascular Exam Cardiovascular Exam: REGULAR RHYTHM, +S1, +S2 - GI/Abdominal Exam GI & Abdominal Exam: Soft. absent: Tenderness - Rectal Exam Rectal Exam: Deferred - Extremities Exam Extremities exam: Negative for: pedal edema - Back Exam Back exam: NORMAL INSPECTION - Neurological Exam Neurological exam: Alert, Oriented x3 - Psychiatric Exam Psychiatric exam: Normal Affect - Skin Skin Exam: Dry, Intact Results - Vital Signs Recent Vital Signs: Last Vital Signs Temp 97.9 F 06/22/18 09:00 Pulse 50 L 06/22/18 09:00 Resp 18 06/22/18 09:00 BP 124/69 06/22/18 09:00 Pulse Ox 98 06/21/18 20:58 - Labs Result Diagrams: 06/21/18 16:49 06/21/18 16:49 Labs: Laboratory Results - last 24 hr 06/21/18 06/21/18 06/21/18 16:49 16:49 16:49 WBC 6.4 RBC 4.58 Hgb 13.9 Hct 40.9 MCV 89.3 MCH 30.4 MCHC 34.1 RDW 13.8 Plt Count 249 MPV 7.8 Neut % (Auto) 71.6 Lymph % (Auto) 22.5 Rich % (Auto) 4.9 Eos % (Auto) 0.8 Baso % (Auto) 0.2 Neut # (Auto) 4.6 Lymph # (Auto) 1.4 Rich # (Auto) 0.3 Eos # (Auto) 0.1 Baso # (Auto) 0.0 Sodium 139 Potassium 3.9 Chloride 105 Carbon Dioxide 25 Anion Gap 13 BUN 17 Creatinine 0.7 L Est GFR ( Amer) > 60 Est GFR (Non-Af Amer) > 60 POC Glucose (mg/dL) Random Glucose 130 H Hemoglobin A1c Calcium 9.4 Total Bilirubin 0.5 AST 56 ALT 47 Alkaline Phosphatase 58 Total Protein 7.2 Albumin 4.4 Globulin 2.8 Albumin/Globulin Ratio 1.6 Triglycerides Cholesterol LDL Cholesterol Direct HDL Cholesterol Urine Color Urine Clarity Urine pH Ur Specific [place] Urine Protein Urine Glucose (UA) Urine Ketones Urine Blood Urine Nitrate Urine Bilirubin Urine Urobilinogen Ur Leukocyte Esterase Urine RBC (Auto) Urine Microscopic WBC Ur Squamous Epith Cells Urine Bacteria Urine Opiates Screen Negative Urine Methadone Screen Negative Ur Barbiturates Screen Negative Ur Phencyclidine Scrn Negative Ur Amphetamines Screen Negative U Benzodiazepines Scrn Negative U Oth Cocaine Metabols Negative U Cannabinoids Screen Negative Alcohol, Quantitative < 10 06/21/18 06/21/18 06/22/18 16:49 16:52 06:30 WBC RBC Hgb Hct MCV MCH MCHC RDW Plt Count MPV Neut % (Auto) Lymph % (Auto) Rich % (Auto) Eos % (Auto) Baso % (Auto) Neut # (Auto) Lymph # (Auto) Rich # (Auto) Eos # (Auto) Baso # (Auto) Sodium Potassium Chloride Carbon Dioxide Anion Gap BUN Creatinine Est GFR ( Amer) Est GFR (Non-Af Amer) POC Glucose (mg/dL) 146 H Random Glucose Hemoglobin A1c Calcium Total Bilirubin AST ALT Alkaline Phosphatase Total Protein Albumin Globulin Albumin/Globulin Ratio Triglycerides 123 Cholesterol 156 LDL Cholesterol Direct 91 HDL Cholesterol 39 Urine Color Rere Urine Clarity Slighty-cloudy Urine pH 6.0 Ur Specific [place] 1.035 H Urine Protein 100 Urine Glucose (UA) Neg Urine Ketones Trace Urine Blood Negative Urine Nitrate Negative Urine Bilirubin Small Urine Urobilinogen 0.2-1.0 Ur Leukocyte Esterase Neg Urine RBC (Auto) 3 Urine Microscopic WBC 2 Ur Squamous Epith Cells < 1 Urine Bacteria Rare Urine Opiates Screen Urine Methadone Screen Ur Barbiturates Screen Ur Phencyclidine Scrn Ur Amphetamines Screen U Benzodiazepines Scrn U Oth Cocaine Metabols U Cannabinoids Screen Alcohol, Quantitative 06/22/18 06:30 WBC RBC Hgb Hct MCV MCH MCHC RDW Plt Count MPV Neut % (Auto) Lymph % (Auto) Rich % (Auto) Eos % (Auto) Baso % (Auto) Neut # (Auto) Lymph # (Auto) Rich # (Auto) Eos # (Auto) Baso # (Auto) Sodium Potassium Chloride Carbon Dioxide Anion Gap BUN Creatinine Est GFR ( Amer) Est GFR (Non-Af Amer) POC Glucose (mg/dL) Random Glucose Hemoglobin A1c 5.8 Calcium Total Bilirubin AST ALT Alkaline Phosphatase Total Protein Albumin Globulin Albumin/Globulin Ratio Triglycerides Cholesterol LDL Cholesterol Direct HDL Cholesterol Urine Color Urine Clarity Urine pH Ur Specific [place] Urine Protein Urine Glucose (UA) Urine Ketones Urine Blood Urine Nitrate Urine Bilirubin Urine Urobilinogen Ur Leukocyte Esterase Urine RBC (Auto) Urine Microscopic WBC Ur Squamous Epith Cells Urine Bacteria Urine Opiates Screen Urine Methadone Screen Ur Barbiturates Screen Ur Phencyclidine Scrn Ur Amphetamines Screen U Benzodiazepines Scrn U Oth Cocaine Metabols U Cannabinoids Screen Alcohol, Quantitative Assessment & Plan (1) Suicidal ideation Status: Acute Comment: psyche is managing
[2018-06-22 19:09] LABS: RAPID PLASMA REAGIN REACTIVE (NONREACTIVE)
--- NOTE | 2018-06-23 11:36 | PCM.PYCHPN ---
Psychiatric Progress Note - Psychiatric Progress Note Patient seen today, length of contact: Pt evaluated, case discussed w/ team, chart reviewed Patient Chief Complaint: Depression Problems Identified/Issues Discussed: Patient continues to report feeling depressed with poor sleep and low energy. He denies active suicidal ideation but continues to have passive wishes he were not alive. He continues to have paranoia towards his family. No acute homicidal ideation. He denies acute AH/VH. No adverse effects to medications reported. Medication Change: No Medical Record Reviewed: Yes Consults ordered or reviewed: Medicine consult Mental Status Examination - Cognitive Function Orientation: Person, Place, Situation, Time Memory: Intact Attention: WNL Concentration: WNL Association: WNL Fund of Knowledge: [facility] Decription of patient's judgement and insights: Poor I/J - Mood Mood: Depressed, Anxious - Affect Affect: Constricted - Formal Thought Process Formal Thought Process: Paranoia, Circumstantial Psychotic Thoughts and Behaviors: Denies acute AH/CAH/VH - Suicidal Ideation Suicidal Ideation: No - Homicidal Ideation Homicidal Ideation: No Goal/Treatment Plan - Goal/Treatment Plan Need for Continued Stay: Remain at risks for inpatient hospitalization, Severe depression anxiety Progress Toward Problem(s) and Goals/Treatment Plan: Schizoaffective Disorder -Continue current medications -Individual and group therapy -Psychoeducation -Medicine consult -Disposition planning
--- NOTE | 2018-06-24 10:31 | CP.PCM.PN ---
Subjective - Date & Time of Evaluation Date of Evaluation: 06/24/18 Time of Evaluation: 10:28 - Subjective Subjective: made aware of +nontreponemal RPR 1:8, FTA ABS ordered 2 days ago, and awaiting results. further management pending results Objective - Vital Signs/Intake and Output Vital Signs (last 24 hours): Temp Pulse Resp BP Pulse Ox 97.8 F 58 L 17 122/72 98 06/24/18 09:00 06/24/18 09:00 06/24/18 09:00 06/24/18 09:00 06/21/18 20:58 - Medications Medications: Current Medications Acetaminophen (Tylenol 325mg Tab) 650 mg PO Q4 PRN PRN Reason: pain or headache 4-7 pain scal Al Hydrox/Mg Hydrox/Simethicone (Maalox Plus 30 Ml) 30 ml PO Q4 PRN PRN Reason: Dyspepsia Aripiprazole (Abilify) 20 mg PO HS [facility] Last Admin: 06/23/18 21:03 Dose: 20 mg Diphenhydramine HCl (Benadryl) 50 mg IM Q6 PRN PRN Reason: Extrapyramidal S/S Unable PO Diphenhydramine HCl (Benadryl) 50 mg PO HS PRN PRN Reason: Extrapyramidal Symptoms Diphenhydramine HCl (Benadryl) 50 mg PO Q6 PRN PRN Reason: extrapyrimidal s/s Haloperidol (Haldol) 5 mg PO Q4 PRN PRN Reason: Agitation Haloperidol Lactate (Haldol) 5 mg IM Q4 PRN PRN Reason: Agitation, Unable to Take PO Lorazepam (Ativan) 2 mg IM Q4 PRN PRN Reason: Anxiety/Agitation,Unable PO Lorazepam (Ativan) 1 mg PO Q6 PRN PRN Reason: Agitation Magnesium Hydroxide (Milk Of Magnesia) 30 ml PO HS PRN PRN Reason: Constipation Sertraline HCl (Zoloft) 100 mg PO DAILY [facility] Last Admin: 06/24/18 08:47 Dose: 100 mg - Labs Labs: 06/21/18 16:49 06/21/18 16:49
[2018-06-24] MEDS ORDERED: Penicillin G Benzathine 2.4 Mill Unit/4 ml Syr IM SCH (11:45)
--- NOTE | 2018-06-24 15:26 | PCM.PYCHPN ---
Psychiatric Progress Note - Psychiatric Progress Note Patient seen today, length of contact: Pt evaluated, case discussed w/ team, chart reviewed Patient Chief Complaint: I know my brother in law is after me Problems Identified/Issues Discussed: pt evaluated with treatment team, presenting with depressed anxious mood and irritable affect, pt verbalizing paranoid delusions towards family members mainly his brother in law, continues to believe that he is after him and trying to evict him from the house, pt dysphoric and depressed about his situation, continues to report passive suicidal ideation stating his life is worthless with all the trouble he is facing, pt denied active thoughts of self harm on the unit denied command hallucinations, discussed gradual increase in dose of ablify , no reported side effects of medications Medical Problems: multiple inpatient hospitalizations, partial compliance DSM 5 Symptoms Update: schizoaffective disorder bipolar Medication Change: Yes (increase abilify gradually) Medical Record Reviewed: Yes Mental Status Examination - Cognitive Function Orientation: Person, Place, Situation, Time Memory: Intact Attention: WNL Concentration: WNL Association: WNL Fund of Knowledge: WNL - Mood Mood: Depressed, Anxious - Affect Affect: Constricted - Formal Thought Process Formal Thought Process: Paranoia, Circumstantial - Suicidal Ideation Suicidal Ideation: No - Homicidal Ideation Homicidal Ideation: No Goal/Treatment Plan - Goal/Treatment Plan Need for Continued Stay: Remain at risks for inpatient hospitalization, Severe depression anxiety Progress Toward Problem(s) and Goals/Treatment Plan: increase abilfy 25mg zoloft 100mg cbt group and supportive therapy internal medicine consult/ RPR positive; start penicillin disposition planning
--- NOTE | 2018-06-25 17:37 | PCM.PYCHPN ---
Psychiatric Progress Note - Psychiatric Progress Note Patient seen today, length of contact: Pt evaluated, case discussed w/ team, chart reviewed Patient Chief Complaint: I am tired of the games done by my brother and my sister Problems Identified/Issues Discussed: pt evaluated , presenting with anxious mood and constricted affect, continues to verbalize delusions of persecution, stated that his brother in law and sister are playing games and trying to have him out of the house, CBT provided discussed with patient possible overvalued ideas, discussed gradualy increasing dose of abilify,pt denied any current side effects , also discussed with patient possiblity of starting partial hospital on discharge, pt denied command hallucinations, denied any current thoughts of self harm Medical Problems: multiple inpatient hospitalizations, partial compliance DSM 5 Symptoms Update: schizoaffective disorder bipolar Medication Change: Yes (increase abilify gradually) Medical Record Reviewed: Yes Mental Status Examination - Cognitive Function Orientation: Person, Place, Situation, Time Memory: Intact Attention: WNL Concentration: WNL Association: WNL Fund of Knowledge: WNL - Mood Mood: Depressed, Anxious - Affect Affect: Constricted - Formal Thought Process Formal Thought Process: Paranoia, Circumstantial - Suicidal Ideation Suicidal Ideation: No - Homicidal Ideation Homicidal Ideation: No Goal/Treatment Plan - Goal/Treatment Plan Need for Continued Stay: Remain at risks for inpatient hospitalization, Severe depression anxiety Progress Toward Problem(s) and Goals/Treatment Plan: increase abilfy 25mg zoloft 100mg cbt group and supportive therapy referral to partial hospital on discharge
--- NOTE | 2018-06-26 14:14 | PCM.PYCHPN ---
Psychiatric Progress Note - Psychiatric Progress Note Patient seen today, length of contact: Pt evaluated, case discussed w/ team, chart reviewed Patient Chief Complaint: I feel calmer today Problems Identified/Issues Discussed: pt evaluated , less anxious , no reported side effects with increasing abilify, continues to , denied any current thoughts of self harm continues to have paranoid delusions about family members discussed increasing abilify to 30mg, pt continues to isolate himself, encourgaed to attend groups and participate in treatment, denied command hallucinations, denied suicidal or homicidal ideation Medical Problems: multiple inpatient hospitalizations, partial compliance DSM 5 Symptoms Update: schizoaffective disorder Medication Change: Yes (increase abilify gradually) Medical Record Reviewed: Yes Mental Status Examination - Cognitive Function Orientation: Person, Place, Situation, Time Memory: Intact Attention: WNL Concentration: WNL Association: WNL Fund of Knowledge: WNL - Mood Mood: Depressed, Anxious - Affect Affect: Constricted - Formal Thought Process Formal Thought Process: Paranoia, Circumstantial - Suicidal Ideation Suicidal Ideation: No - Homicidal Ideation Homicidal Ideation: No Goal/Treatment Plan - Goal/Treatment Plan Need for Continued Stay: Remain at risks for inpatient hospitalization, Severe depression anxiety Progress Toward Problem(s) and Goals/Treatment Plan: increase abilfy 30mg zoloft 100mg cbt group and supportive therapy referral to [facility] on discharge
[2018-06-27 11:38] VITALS: BMI 31.1
--- NOTE | 2018-06-27 14:14 | PCM.PYCHPN ---
Psychiatric Progress Note - Psychiatric Progress Note Patient seen today, length of contact: Pt evaluated, case discussed w/ team, chart reviewed Patient Chief Complaint: I feel better with increasing the abilify Problems Identified/Issues Discussed: pt evaluated ,reported better mood, affect less irritable, no reported side effects with the increase in abilify , continues to have paranoid delusions about family members , encouraged to attend groups and participate in treatment, denied command hallucinations, denied suicidal or homicidal ideation Medical Problems: multiple inpatient hospitalizations, partial compliance DSM 5 Symptoms Update: schizoaffective disorder bipolar Medication Change: No Medical Record Reviewed: Yes Mental Status Examination - Cognitive Function Orientation: Person, Place, Situation, Time Memory: Intact Attention: WNL Concentration: WNL Association: WNL Fund of Knowledge: WNL - Mood Mood: Depressed, Anxious - Affect Affect: Constricted - Formal Thought Process Formal Thought Process: Paranoia, Circumstantial - Suicidal Ideation Suicidal Ideation: No - Homicidal Ideation Homicidal Ideation: No Goal/Treatment Plan - Goal/Treatment Plan Need for Continued Stay: Remain at risks for inpatient hospitalization, Severe depression anxiety Progress Toward Problem(s) and Goals/Treatment Plan: increase abilfy 30mg zoloft 100mg cbt group and supportive therapy referral to [facility] on discharge
--- NOTE | 2018-06-28 14:09 | PCM.PYCHPN ---
Psychiatric Progress Note - Psychiatric Progress Note Patient seen today, length of contact: Pt evaluated, case discussed w/ team, chart reviewed Patient Chief Complaint: reports feels less depressed no voices somewhat tired. pt submitted 48hr notice- reviewed process and significance pt verbally agreeable to remain unitl saturday* review with pt that discharge decisions made on status of person. staff report pt rx adherent, seen about unit. Problems Identified/Issues Discussed: alteration in mood \ alteration in coping Diagnostic Results: per psy chiatry per medicine per nursing DSM 5 Symptoms Update: some improvement ?impulse submitted 48 hr notice Medication Change: No Medical Record Reviewed: Yes Consults ordered or reviewed: pt being followed by medical team Mental Status Examination - Cognitive Function Orientation: Person, Place, Situation, Time Memory: Intact Attention: WNL Concentration: WNL Association: WNL Fund of Knowledge: WN Decription of patient's judgement and insights: impaired - Mood Mood: Depressed, Anxious Additional comments: somewhat improved - Affect Affect: Constricted - Speech Speech: Soft - Formal Thought Process Formal Thought Process: No Impairment, Paranoia, Circumstantial - Suicidal Ideation Suicidal Ideation: No - Homicidal Ideation Homicidal Ideation: No Goal/Treatment Plan - Goal/Treatment Plan Need for Continued Stay: Remain at risks for inpatient hospitalization, Severe depression anxiety Progress Toward Problem(s) and Goals/Treatment Plan: inpt milieu adjust meds per clinical [facility] discharge planning in progress Estimated Date of D/C: 07/01/18 - Smoking Cessation Smoking Cessation Initiated: No Reason for not providing: pt defers
[2018-06-29 09:18] VITALS: BP 120/73; RESP 14
--- NOTE | 2018-06-29 14:43 | PCM.PYCHPN ---
Psychiatric Progress Note - Psychiatric Progress Note Patient seen today, length of contact: Pt evaluated, case discussed w/ team, chart reviewed Patient Chief Complaint: reports had a good night, sleep improving had a positve visit with brother. staff report pt is rx adherent seen about unit interacting with select peers. pt's appetite is good, denies side effects from current regimen. pt reports is looking forward to discussing with team in am, pt continues to want to have 48hour notice to remain in effect-reviewed pt could rescind and submit again-pt defers this option. review with pt that team in am if concerned for possible safety of pt and or others may consider having the pt. screened for involuntary admition. Problems Identified/Issues Discussed: alteration in mood \alteration in coping improving Medical Problems: per chart Diagnostic Results: per psy chiatry per medicine per nursing DSM 5 Symptoms Update: improving mood and cognition denies s/i or h/i denies psychosis verbalizes desire to continue treatment upon discharge si Medication Change: No Medical Record Reviewed: Yes Consults ordered or reviewed: pt being followed by medical team Mental Status Examination - Cognitive Function Orientation: Person, Place, Situation, Time Memory: Intact Attention: WNL Concentration: WNL Association: [facility] Fund of Knowledge: [facility] Decription of patient's judgement and insights: impaired-improving - Mood Additional comments: less anxious, less depressed denies panic - Affect Affect: Constricted - Speech Speech: Soft - Formal Thought Process Formal Thought Process: No Impairment, Circumstantial - Suicidal Ideation Suicidal Ideation: No - Homicidal Ideation Homicidal Ideation: No Goal/Treatment Plan - Goal/Treatment Plan Need for Continued Stay: Remain at risks for inpatient hospitalization, Severe depression anxiety Progress Toward Problem(s) and Goals/Treatment Plan: inpt milieu adjust meds per clinical st[facility] 48 hour notice due to 06/30/18 1220 pt has a positive rpr titre 1:8 (fta ab is pending), pt was received 1st dose pcn g 06/24/18-second dose due [id number] discharge planning in progress Estimated Date of D/C: 06/30/18 - Smoking Cessation Smoking Cessation Initiated: No Reason for not providing: defers
[2018-06-30 11:43] VITALS: PULSE 50; TEMP 97.5
--- NOTE | 2018-06-30 12:05 | PCM.PYCHDC ---
Mental Status Examination - Mental Status Examination Orientation: Person, Place, Situation Memory: Intact Mood: Neutral Affect: Constricted Speech: Appropriate Attention: WNL Concentration: WNL Association: WNL Fund of Knowledge: WNL Formal Thought Process: Circumstantial Description of patient's judgement and insight: partial insight fair judgment Psychotic Thoughts and Behaviors: pt denied perceptual disturbances on discharge Suicidal Ideation: No Current Homicidal Ideation?: No Discharge Summary - Discharge Note Reason for Hospitalization: pt is 58 ys old male with previous diagnosis of schizoaffective disorder, referred to ER by private psychiatrist after expressing suicidal and homicidal ideation pt has been increasingly depressed in the context of being unemployed and having financial difficulties, pt has also been increasingly paranoid towards his family, believing they are planning against him resulting in homicidal thoughts on the unit pt is depressed irritable, poor hygiene, reported decreased sleep with early insomnia passive suicidal and homicidal ideation , non command auditory hallucinations putting him down Consultations:: List each consultation separately and include: 1. Reason for request. 2. Findings. 3. Follow-up Summary of Hospital Course include:: 1. Description of specific treatment plan utilized for patients during their course of treatmen. 2. Summarize the time- course for resolution of acute symptoms and/or regressed behaviors. 3. Describe issues identified and worked on during hospitalization. 4. Describe medication utilized. 5. Describe medical problems identified and treated. 6. Reassessment of suicide risk Summary of Hospital Course: pt on admission presented with depressed mood , irritable affect, paranoid delusions pt was restarted on zoloft and abilify was increased to 30mg daily CBT group and supportive therapy was provided pt was compliant with treatment, no reported side effects, attended groups on discharge pt mental status was stable denied any current suicidal or homicidal ideation denied perceptual disturbances - Diagnosis (1) Schizoaffective disorder, bipolar type Current Visit: Yes Status: Acute (2) Positive RPR test Current Visit: Yes Status: Acute - Final Diagnosis (DSM 5) Condition upon Discharge: STABLE DSM 5: schizoaffective disorder bipolar type Disposition: HOME/ ROUTINE Follow-up Treatment Plan: [facility] partial hospital program Prescriptions/Medication Reconciliation: ARIPiprazole [Abilify] 30 mg PO HS 30 Days #90 tab Penicillin G Benzathine [Bicillin L-A inj] 2,400,000 units IM Q7D #2 vial Sertraline [Zoloft] 100 mg PO DAILY 30 Days #30 tab - Antipsychotic Medications Pt discharged on 2 or more routine antipsychotic medications: No
== END 2018-06-30 14:43 | disposition home or self-care (01) | DRG 430 ==
LOC: H.ER 16:09 → H.ERHOLD 17:54 → H.PSYCH 21:23
PROVIDERS: ADMIT Psychiatry & Neurology Psychiatry; ATTEND Psychiatry & Neurology Psychiatry
PROC: GZHZZZZ Group Psychotherapy (ICD-10-PCS; principal; 2018-06-21)
PROC: GZ58ZZZ Individual Psychotherapy, Cognitive-Behavioral (ICD-10-PCS; 2018-06-21)
PROC: GZ56ZZZ Individual Psychotherapy, Supportive (ICD-10-PCS; 2018-06-21)
DX: F25.0 Schizoaffective disorder, bipolar type (principal); R45.850 Homicidal ideations; R45.851 Suicidal ideations; Z79.82 Long term (current) use of aspirin; G47.00 Insomnia, unspecified; F17.210 Nicotine dependence, cigarettes, uncomplicated; Z59.9 Problem related to housing and economic circumstances, unspecified; R76.8 Other specified abnormal immunological findings in serum; E11.9 Type 2 diabetes mellitus without complications; E78.00 Pure hypercholesterolemia, unspecified; M19.90 Unspecified osteoarthritis, unspecified site